=== PATIENT | male | born 1950 | race Caucasian/White ===

== ENCOUNTER 2021-08-20 12:28 | Outpatient (CLI) | payer MEDICARE, OTHER, SELFPAY ==
--- NOTE | 2021-08-20 06:00 | DI.RAD_ITS ---
Exam(s) XR PAIN CLINIC SACRIOILIAC 2V EXAM: XR PAIN CLINIC SACRIOILIAC 2V CLINICAL HISTORY: DX: SI joint dysfunction TECHNIQUE: 2D and realtime digital imaging was performed. CONTRAST MATERIAL: Refer to procedure report. COMPARISON: No exams were available for comparison FINDINGS: Fluoroscopy was provided for Dr. Bishop during the performance of a right SI joint injection. Please refer to the procedure report for complete details. Ka,r=16.5 mGy IMPRESSION:
[2021-08-20 12:42] VITALS: BP 160/86; PULSE 96; RESP 22; TEMP 37.1; O2SAT 96
--- NOTE | 2021-08-20 13:21 | PDOC.PAIN ---
Pain Clinic Procedure Note Procedure Note Procedure Note: INTRA-ARTICULAR SI JOINT INJECTION Vernon Hernandez has been referred to the [facility] for intra-articular SI joint injection. COMMENTS: He had this procedure in the past and had >1 year of relief. Pre-procedure pain VAS = 6/10. Dx: Sacroiliac joint dysfunction Patient was interviewed and the medical record reviewed. There were no medical, pharmacologic, radiographic or other structural contraindications to attempting fluoroscopically guided intra-articular SI joint injection. Risks and expected side effects as well as potential benefit of the procedure were reviewed and voiced concerns addressed. The printed consent form was signed and witnessed. Standard time-out procedure was performed. Patient was placed in the prone position on the fluoroscopy table and automated blood pressure cuff and pulse oximeter applied. The skin entry point for approaching the right SI joint was identified under the most advantageous fluoroscopic view and marked. Following thorough Chlorhexadine preparation of the skin and draping and 1% lidocaine infiltration of the skin entry point and subcutaneous tissues, a 22 gauge 5 spinal needle was placed under fluoroscopic guidance into the right SI joint was identified under the most advantageous fluoroscopic view and marked. Intra-articular placement was confirmed by a clear arthrogram resulting from the injection of 0.25ml Omnipaque 240, 1ml 1% lidocaine, and 40mg Depomedrol were injected intra-articularily with an initial reproduction of a significant component of the usual pain. Vital signs were stable throughout the procedure and were as recorded in the docflowsheet by the nursing staff. If given, dosages of intravenous drugs for anxiolysis and analgesia were documented in MAR. Follow up plans and appointments were discussed with the patient. Post procedure instruction was given as documented in nursing documentation and having met discharge criteria, and was discharged from the [facility]. COMMENTS: Post-procedure pain VAS = 0/10 Gab Bishop DO, MPH [facility] CC: Shea Bains
[2021-08-20] MEDS: Omnipaque 240 MG/ML 50 ML BTL IJ (13:30)
[2021-08-20] MEDS: methylPREDNISolone ACETATE 80 MG/ML VIAL IJ (13:30)
[2021-08-20 13:31] VITALS: BP 155/76; PULSE 93; RESP 22; O2SAT 97
== END 2021-08-20 12:29 | disposition home or self-care (01) ==
LOC: PC 12:30
PROVIDERS: PCP Family Medicine; Visit Provider Preventive Medicine Occupational Medicine
DX: M53.3 Sacrococcygeal disorders, not elsewhere classified (principal)
CPT/HCPCS: 27096; 72200; J1040; Q9967

== ENCOUNTER 2021-09-15 03:43 | Outpatient (CLI) | payer MEDICARE, OTHER, SELFPAY ==
[2021-09-15] MEDS: Inhaler, Assist Device 1 EACH MC (14:34)
[2021-09-15] MEDS: Albuterol HFA 18 GM 200 PUFF INH IH (14:34)
--- NOTE | 2021-09-16 09:08 | W.PFT ---
Date of service: 09/15/21 Time of Service: 13:06 Pulmonary Function Test Result Requesting Provider Erinn Indications: COPD Interpretation Spirometry: Although the FEV1/FVC is normal, airflow obstruction is suggested by the flow volume loop and the volume time curve. There is no significant bronchodilator response.The FVC is low. Lung Volumes: Lung volumes are normal. Diffusion Capacity: Diffusion is reduced Airway Pressure: Normal airways resistance Impression Likely mild airflow obstruction and a reduced diffusion. This could represent COPD with emphysema. Clinical Correlation therefore is recommended.
== END 2021-09-15 03:44 | disposition home or self-care (01) ==
LOC: RT 03:44
PROVIDERS: PCP Family Medicine; Visit Provider Student in an Organized Health Care Education/Training Program
DX: J44.9 Chronic obstructive pulmonary disease, unspecified (principal); R94.2 Abnormal results of pulmonary function studies; Z87.891 Personal history of nicotine dependence
CPT/HCPCS: 94060; 94726; 94729

== ENCOUNTER → 2023-02-25 11:16 | Outpatient (BNVA) | payer MEDICARE, OTHER, SELFPAY | PROVIDERS: PCP Family Medicine; Referring Provider Family Medicine; Visit Provider Student in an Organized Health Care Education/Training Program | DX: J44.9 Chronic obstructive pulmonary disease, unspecified (principal); J45.909 Unspecified asthma, uncomplicated; G47.33 Obstructive sleep apnea (adult) (pediatric); Z87.891 Personal history of nicotine dependence | CPT/HCPCS: 99214 ==

== ENCOUNTER → 2023-08-24 12:31 | Outpatient (BNVA) | payer MEDICARE, OTHER, SELFPAY | PROVIDERS: PCP Family Medicine; Referring Provider Family Medicine; Visit Provider Physician Assistant Surgical | DX: J44.9 Chronic obstructive pulmonary disease, unspecified (principal); G47.33 Obstructive sleep apnea (adult) (pediatric); Z87.891 Personal history of nicotine dependence | CPT/HCPCS: 99214 ==

== ENCOUNTER → 2024-02-21 12:12 | Outpatient (BNVA) | payer MEDICARE, OTHER, SELFPAY | PROVIDERS: PCP Family Medicine; Referring Provider Family Medicine; Visit Provider Physician Assistant Surgical | DX: G47.33 Obstructive sleep apnea (adult) (pediatric) (principal); J44.9 Chronic obstructive pulmonary disease, unspecified; Z87.891 Personal history of nicotine dependence | CPT/HCPCS: 99214 ==

== ENCOUNTER 2024-10-12 11:13 | Inpatient (IN) | payer MEDICARE, OTHER, SELFPAY ==
[2024-10-12] VITALS (52 sets, daily range): BP systolic 90–170; BP diastolic 52–145; PULSE 59–127; RESP 13–22; TEMP 36–36.2; O2SAT 76–98
--- NOTE | 2024-10-12 11:30 | DI.RAD_ITS ---
Exam(s) XR PORTABLE CHEST AP EXAM: XR PORTABLE CHEST AP CLINICAL HISTORY: hyperglycemia, r/o PNA TECHNIQUE: 2D digital imaging was performed. COMPARISON: None FINDINGS: Exam is limited by semi-upright positioning and portable technique as well as patient body habitus. The film is rotated. There are overlying monitoring leads. LUNGS: Grossly clear where visualized. No pleural abnormality seen. HEART: enlarged. AORTA: Grossly normal diameter. BONES: Severe degenerative changes of the shoulders. Soft tissues: Unremarkable. IMPRESSION: Limited exam. No acute findings. DATA REPOSITORY: RADIATION DOSE DELIVERED:
--- NOTE | 2024-10-12 11:44 | W.ED.GENAD ---
Discharge Plan Disposition Patient Disposition: Admit to [facility] Discharge Details Clinical Impression: DKA (diabetic ketoacidosis) Primary Care Provider: Shea Bains ED Provider: Latrice Crespo Home Meds and New Rx's Prescriptions: No Action Jardiance 25 mg tablet 25 mg PO DAILY lutein 6 mg capsule 6 mg PO DAILY Rx Instructions: give with meal/snack vit D3-vit K2-olive leaf ext 25 mcg-20 mcg- 250 mg capsule PO DAILY pyridoxine (vitamin B6) 100 mg tablet 100 mg PO DAILY mecobalamin (vitamin B12) 1,000 mcg tablet,chewable 1,000 mcg PO DAILY vitamin A-vit C-vit E-zinc-Cu Tablet PO metformin 500 mg tablet 500 mg PO BID furosemide [Lasix] 40 mg tablet 40 mg PO BID loratadine [Allergy Relief (loratadine)] 10 mg tablet 10 mg PO DAILY PRN atorvastatin [Lipitor] 20 mg tablet 20 mg PO DAILY polyethylene glycol 3350 [Miralax] 17 gram powder in packet 17 g PO DAILY metoprolol succinate [Toprol XL] 200 mg tablet extended release 24 hr 200 mg PO DAILY lorazepam 0.5 mg tablet 0.5 mg PO DAILY PRN (DME) miscellaneous medical supply Misc See Rx Instructions .ROUTE Rx Instructions: As directed (DME) back brace Misc See Rx Instructions .ROUTE Rx Instructions: As directed duloxetine 20 mg capsule,delayed release(DR/EC) 20 mg PO DAILY (DME) Poise Pads Pad See Rx Instructions .ROUTE Rx Instructions: As directed lutein 20 mg tablet 20 mg PO DAILY Rx Instructions: give with meal/snack Combivent Respimat 20-100 mcg/actuation mist 1 puff inhalation 4XD terazosin 5 MG capsule 5 mg PO DAILY triamcinolone acetonide 5 GM paste 5 g Dental BID pantoprazole [Protonix] 40 MG tablet,delayed release (DR/EC) 40 mg PO DAILY PRN metoprolol tartrate 25 MG tablet 25 mg PO DAILY Rx Instructions: one half tablet in AM, one whole tablet in the evening. potassium chloride [Klor-Con 10] 10 MEQ tablet extended release 10 meq PO DAILY levothyroxine 112 MCG tablet 112 mcg PO DAILY Combivent Respimat 4 GM mist 1 puff Inhalation QID Rx Instructions: 20-100 MCG/ACT Oxygen EACH 2 l NS PRN PRNQty: 3 Rx Instructions: Via nasal cannula 24 hrs daily. diclofenac sodium 100 GM gel 4 gm Topical QID PRN30 Days Qty: 100 Rx Instructions: apply 4 grams to right knee or right shoulder finasteride 5 mg tablet 5 mg PO DAILY clotrimazole-betamethasone 1-0.05 % cream 1 applic topical BID lisinopril 2.5 mg tablet 20 mg PO DAILY digoxin 125 mcg (0.125 mg) tablet 125 mcg PO DAILY diltiazem HCl 120 mg capsule,extended release 12 hr 120 mg PO DAILY mirabegron 25 mg tablet extended release 24 hr 50 mg PO DAILY Spiriva Respimat 2.5 mcg/actuation mist 2 puff inhalation DAILY Xarelto 20 mg tablet 20 mg PO DAILY Rx Instructions: must administer with evening meal primidone [Mysoline] 50 mg tablet 50 mg PO QHS gabapentin 300 mg Capsule 600 mg PO BID primidone 250 mg tablet 250 mg PO DAILY HPI General Date/Time Provider Initiated Documentation: 10/12/24 11:19. HPI Narrative: Derrek (preferred name) is a 74-year-old male with history of T2DM, COPD, combined systolic and diastolic heart function with EF 45% on echo 02/26/2023, HTN, WAQAR, hypothyroidism, Luciano's esophagus, BPH, lumbar spinal stenosis, and obesity who presents to the emergency department today for evaluation of generalized not feeling well/confusion and elevated blood sugars. reports that he started not acting quite like himself yesterday. Today she called the ambulance because he did not seem to be recognizing his surroundings. He has been taking his Jardiance and metformin as prescribed; usually checks blood sugars 3 times a week, but has not been able to do so this week due to camping. Denies fever/chills, congestion, sore throat, cough, abdominal pain, change in bowel or bladder function, blood in stool or black/tarry stools. Denies history of hospitalization for DKA or other diabetes related complications. Related Data Home Medications ?Medication ?Instructions ?Recorded ?Confirmed Protonix 40 mg tablet,delayed 40 mg PO DAILY PRN 10/29/16 10/12/24 release (pantoprazole) metoprolol tartrate 25 mg tablet 25 mg PO DAILY 10/29/16 10/12/24 terazosin 5 mg capsule 5 mg PO DAILY 10/29/16 10/12/24 triamcinolone acetonide 0.1 % 5 g dental BID 10/29/16 10/12/24 dental paste Oxygen 2 l NS PRN PRN ##3 06/13/17 10/12/24 ipratropium 20 mcg-albuterol 100 1 puff inhalation QID 06/13/17 10/12/24 mcg/actuation mist for inhalation (Combivent Respimat) levothyroxine 112 mcg tablet 112 mcg PO DAILY 06/13/17 10/12/24 potassium chloride 10 mEq 10 meq PO DAILY 06/13/17 10/12/24 tablet,extended release (Klor-Con) diclofenac sodium 3 % topical gel 4 gm topical QID PRN 30 days #100 06/16/17 02/21/24 grams clotrimazole-betamethasone 1 1 applic topical BID 05/12/21 10/12/24 %-0.05 % topical cream digoxin 125 mcg (0.125 mg) tablet 125 mcg PO DAILY 05/12/21 10/12/24 diltiazem HCl 120 mg 120 mg PO DAILY 05/12/21 10/12/24 capsule,extended release 12 hr finasteride 5 mg tablet 5 mg PO DAILY 05/12/21 10/12/24 lisinopril 2.5 mg tablet 20 mg PO DAILY 05/12/21 10/12/24 mirabegron 25 mg tablet,extended 50 mg PO DAILY 05/12/21 10/12/24 release 24 hr rivaroxaban 20 mg tablet (Xarelto) 20 mg PO DAILY 05/12/21 10/12/24 tiotropium bromide 2.5 2 puff inhalation DAILY 05/12/21 10/12/24 mcg/actuation mist for inhalation (Spiriva Respimat) gabapentin 300 mg capsule 600 mg PO BID 08/20/21 10/12/24 furosemide 40 mg tablet (Lasix) 40 mg PO BID 08/21/21 10/12/24 loratadine 10 mg tablet (Allergy 10 mg PO DAILY PRN 07/19/22 02/21/24 Relief (loratadine)) empagliflozin 25 mg tablet 25 mg PO DAILY 08/24/23 10/12/24 (Jardiance) Mysoline 50 mg tablet (primidone) 50 mg PO QHS 02/21/24 10/12/24 lutein 6 mg capsule 6 mg PO DAILY 02/21/24 10/12/24 mecobalamin (vitamin B12) 1,000 1,000 mcg PO DAILY 02/21/24 10/12/24 mcg chewable tablet metformin 500 mg tablet 500 mg PO BID 02/21/24 10/12/24 pyridoxine (vitamin B6) 100 mg 100 mg PO DAILY 02/21/24 10/12/24 tablet vitamin A-vit C-vit E-zinc-Cu tab PO 02/21/24 02/21/24 tablet vitamin D3 25 mcg-vitamin K2 20 cap PO DAILY 02/21/24 02/21/24 mcg-olive leaf extract 250 mg capsule atorvastatin 20 mg tablet (Lipitor) 20 mg PO DAILY 09/04/24 10/12/24 back brace 09/04/24 10/12/24 duloxetine 20 mg capsule,delayed 20 mg PO DAILY 09/04/24 10/12/24 release incontinence pad, liner, disp 09/04/24 10/12/24 (Poise Pads) ipratropium 20 mcg-albuterol 100 1 puff inhalation 4XD 09/04/24 10/12/24 mcg/actuation mist for inhalation (Combivent Respimat) lorazepam 0.5 mg tablet 0.5 mg PO DAILY PRN 09/04/24 10/12/24 lutein 20 mg tablet 20 mg PO DAILY 09/04/24 10/12/24 metoprolol succinate 200 mg 200 mg PO DAILY 09/04/24 10/12/24 tablet,extended release 24 hr (Toprol XL) miscellaneous medical supply 09/04/24 10/12/24 polyethylene glycol 3350 17 gram 17 g PO DAILY 09/04/24 10/12/24 oral powder packet (Miralax) primidone 250 mg tablet 250 mg PO DAILY 10/12/24 10/12/24 Allergies Allergy/AdvReac Type Severity Reaction Status Date / Time morphine Allergy Unknown Other (See Unverified 09/04/24 14:09 Comment) seasonal Allergy Unknown Other (See Uncoded 02/21/24 12:38 Comment) General Stated Complaint: Diabetes ABHILASH: 3 Exam Narrative Exam Narrative: General Appearance: Patient appears confused, often does not respond appropriately to questions. Vital signs: Within normal limits. No tachycardia, fever, or hypoxia HEENT: Dry mucous membranes, tongue is dry. Brown film noted on teeth. Respiratory: Diminished lung sounds throughout, easy work of breathing Gastrointestinal: Obese, soft, nondistended, nontender abdomen. Skin: Warm and dry. Flat erythematous rash with noted in skin roberto of pannus, no crusting, vesicles, drainage/exudate. Neurologic: Patient is able to follow commands, moving all extremities equally. Normal facial strength, clear speech. Psychiatric: Normal. Course Vital Signs Vital signs: Vital Signs Temperature 36.2 C L 10/12/24 11:20 Pulse 64 10/12/24 11:20 Respiratory Rate 20 10/12/24 11:20 Blood Pressure 135/81 10/12/24 11:20 Pulse Oximetry 98 10/12/24 11:20 Temperature 36.2 C L 10/12/24 11:28 Temperature Source Tympanic 10/12/24 11:28 Pulse 64 10/12/24 11:28 Respiratory Rate 20 10/12/24 11:28 Blood Pressure 135/81 10/12/24 11:28 Pulse Oximetry 98 10/12/24 11:28 Oxygen Delivery Method Room Air 10/12/24 11:28 Oxygen Flow Rate 0 10/12/24 11:28 Pain Level 0 10/12/24 11:28 Medical Decision Making Initial Assessment: 74-year-old male with hypoglycemia, elevated blood sugars, and non-compliance with insulin injections. Last A1c was 8 on 09/06/2024. Currently on metformin and Jardiance. Presented via EMS, blood sugar read only HI DDx includes was not limited to: Cardiac arrhythmia, DKA/HHS, dehydration, viral illness such as COVID-19 or flu, occult infection such as pneumonia or UTI, electrolyte imbalance ED Course: - EKG performed - Blood work drawn - Fluid rehydration provided I independently interpreted the following tests: EKG shows A-fib with rate 74, LBBB unchanged from previous noted at [facility] [place], no changes consistent with acute ischemia. CBC notable for leukocytosis, white cell count 17.7. CMP notable for blood glucose 909, potassium 4.6, anion gap 16.8. pH slightly acidotic at 7.27. Lactate is elevated at 2.4. +urine ketones While in the ED Derrek was given 1 L lactated ringer (for a total of 1.5 L), followed by insulin drip per [facility] protocol with LR at 150 an hour. Presented case to Dr Bowles, hospitalist physician. Pt to be admitted for management of hyperglycemia. Clinical Impression: - DKA Patient consented to the use of [facility] Imaging Data Radiologic Study: Radiologist's impression: Exam(s) XR PORTABLE CHEST AP EXAM: XR PORTABLE CHEST AP CLINICAL HISTORY: hyperglycemia, r/o PNA TECHNIQUE: 2D digital imaging was performed. COMPARISON: None FINDINGS: Exam is limited by semi-upright positioning and portable technique as well as patient body habitus. The film is rotated. There are overlying monitoring leads. LUNGS: Grossly clear where visualized. No pleural abnormality seen. HEART: enlarged. AORTA: Grossly normal diameter. BONES: Severe degenerative changes of the shoulders. Soft tissues: Unremarkable. IMPRESSION: Limited exam. No acute findings. PFSH All Active Problems (Updated 10/12/24 @ 15:59 by Latrice Alfaro) DKA (diabetic ketoacidosis) (Acute) Personal history of nicotine dependence (Acute) WAQAR (obstructive sleep apnea) (Chronic) Sacroiliac joint dysfunction of right side (Acute) Barretts esophagus (Acute) Type 2 diabetes mellitus with hyperglycemia (Acute) Combined systolic and diastolic heart failure (Acute) EF 30% on echo 04/2021, significant change from EF 55% IN 2019 + MR on echo 04/2021 Tremor of left hand (Acute) Macular degeneration of both eyes (Acute) COPD (chronic obstructive pulmonary disease) (Chronic) Restrictive lung disease (Acute) 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) Medical History (Updated 10/12/24 @ 15:59 by Latrice Alfaro) Back pain, lumbosacral Bilateral age-related macular degeneration Brittle nails Right shoulder pain Left shoulder pain Foot pain Osteoarthritis Constipation Spinal stenosis, lumbar region with neurogenic claudication Mitral regurgitation 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 Right knee pain Renal insufficiency Hyperkalemia Nuclear age-related cataract, both eyes Localized swelling of right lower leg Overactive bladder Type 2 diabetes mellitus with diabetic chronic kidney disease Obesity, morbid, BMI 40.0-49.9 PHT (portal hypertension) AAA (abdominal aortic aneurysm) COPD, severe Pyarthrosis PSA (psoriatic arthritis) ASCVD (arteriosclerotic cardiovascular disease) Health care maintenance Skin complaints Alopecia Arthritis of both knees Hypercholesteremia Arthritis of right shoulder region Breast lump or mass HTN (hypertension) Pleural effusion, bilateral GERD (gastroesophageal reflux disease) Peripheral edema Hypoxia Melanocytic nevus of trunk Hypothyroidism Left Hyperlipidemia Hyperglycemia Essential and other specified forms of tremor Atrial fibrillation Anemia CAD (coronary artery disease) Heart failure Morbid obesity SOB (shortness of breath) Fatigue Sleep apnea Low back pain Primary osteoarthritis of right shoulder BPH (benign prostatic hyperplasia) Surgical History (Updated 09/04/24 @ 13:54 by Yaneth Alanis) S/P colonoscopy History of esophagogastroduodenoscopy (EGD) 04/2021, biopsies pending Arthroplasty of knee 03/2016 Left Family History Mother Emphysema of lung Father CHF (congestive heart failure) Sister Waldenstrom's disease Arthritis Brother Hypertension Social History Smoking/Tobacco Use Status: Former Tobacco Use Quit Date: 02/07/94 Smoking risk assessment performed?: Yes Alcohol Intake: never Drug use: Never Substance use type: does not use Household members: spouse Housing: house 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
[2024-10-12 11:45] LABS: Abs Immature Grans 0.10 10^3/uL (0.0-0.06); HCT 42.2 % (40.0-50.0); HGB 13.9 g/dL (13.5-17.5); Immature Grans % 0.6 %; MCH 28.0 pg (27.0-33.0); MCHC 32.9 % (32.0-36.0); MCV 85 fL (80-95); MPV 13.6 fL (8.0-11.0); Platelet Count 224 10^3/uL (130-400); RBC 4.96 10^6/uL (4.36-5.78); RDW 14.9 % (11.8-14.1); RDW-SD 45.5 fL; WBC 17.70 10^3/uL (4.4-10.8)
--- NOTE | 2024-10-12 11:45 | RT.EKG_ITS ---
APPROVED REPORT Exam: Resting ECG Reason for Exam: ams Patient Location: E HR:74 bpm ECG Measurements Heart Rate 74 AXIS ID [id number] P [id number] QRSd 162 QRS 153 QT 437 T -38 QTc 486 Conclusion Atrial fibrillation...V-rate 56- 66, irreg A-activity Left bundle branch block...QRSd>120, broad/notched R
[2024-10-12 11:47] LABS: BE (Venous) -5 mmol/L (-2-3); HCO3 (Venous) 22 mmol/L (23-28); O2 Sat (Venous) 77 %; TCO2 (Venous) 20 mmol/L (24-29); pCO2 (Venous) 47 mmHg (41-51); pO2 (Venous) 46 mmHg
[2024-10-12] MEDS: Lactated Ringers 1,000 ML 1000 ML IV (12:21)
[2024-10-12 12:32] LABS: ALT 33 U/L (16-63); AST 20 U/L (15-37); Albumin 3.5 g/dL (3.4-5.0); Alkaline Phosphatase 266 U/L (46-116); Anion Gap 16.8 mmol/L (3-11); BUN 32 mg/dL (7-18); Bilirubin, Total 0.8 mg/dL (0.2-1.0); CO2 22.2 mmol/L (21.0-32.0); Calcium 9.3 mg/dL (8.5-10.1); Chloride 88 mmol/L (98-107); Estimated GFR 30.28 (mL/min/1.73m2); Potassium 4.6 mmol/L (3.5-5.1); Sodium 127 mmol/L (136-145); Total Protein 7.2 g/dL (6.4-8.2)
[2024-10-12 12:49] LABS: Glucose 909 mg/dL (74-106)
[2024-10-12 12:50] LABS: Glucose >=1000 mg/dL (Negative)
[2024-10-12 13:04] LABS: C & S Indicated? No; RBC 0-2 HPF (0-2); WBC Negative HPF (0-5)
[2024-10-12] MEDS: INSULIN REGULAR IN 0.9 % NACL 100 UNIT/100 ML BAG IVINF (14:07)
[2024-10-12 14:27] LABS: Anion Gap 15.2 mmol/L (3-11); BUN 32 mg/dL (7-18); CO2 22.8 mmol/L (21.0-32.0); Calcium 9.5 mg/dL (8.5-10.1); Chloride 90 mmol/L (98-107); Estimated GFR 30.28 (mL/min/1.73m2); Potassium 5.1 mmol/L (3.5-5.1); Sodium 128 mmol/L (136-145)
--- NOTE | 2024-10-12 14:28 | W.PM.HP.N ---
Date of service: 10/12/24 Time of Service: 14:28 Assessment and Plan Assessment and plan (1) DKA (diabetic ketoacidosis): Status: Acute Assessment and plan: - Patient presented not feeling well, generalized weakness and some confusion after having not checked his blood sugar for a week while on vacation - Blood sugar found to be 909 in the emergency department, with supporting evidence for DKA being acidosis on VBG with a pH of 7.2, ketones in the urine, and an anion gap of 17 Have the patient was started on insulin drip in the emergency department - Will continue DKA protocol while in the ICU, once patient is awake, able to tolerate p.o. and his anion gap is closed we will transition to long-acting insulin and discontinue insulin drip 1 to 2 hours after - Hold home metformin while on insulin drip (2) Combined systolic and diastolic heart failure: Status: Acute Assessment and plan: - Without acute exacerbation -Continue home statin, 40 mg Lasix, 20 mg lisinopril (3) COPD (chronic obstructive pulmonary disease): Status: Chronic Assessment and plan: - Without acute exacerbation, continue home inhaler regimen (4) Renal insufficiency: Assessment and plan: - Unsure what baseline is, creatinine currently 2.2 - Follow-up a.m. CMP (5) HTN (hypertension): Assessment and plan: - Continue home antihypertensives (6) Barretts esophagus: Status: Acute Assessment and plan: - Continue home PPI (7) Hypothyroidism: Assessment and plan: - Continue home Synthroid (8) Atrial fibrillation: Assessment and plan: - Continue home Xarelto, digoxin, diltiazem History of Present Illness History of Present Illness Chief Complaint: weakness, confusion, elevated blood sugar Narrative: 74-year-old male with a past medical history of IDDM, COPD, systolic and diastolic heart failure last EF of 45% in February 2023, hypertension, WAQAR, hypothyroidism, Luciano's esophagus, BPH, lumbar spine stenosis, and morbid obesity presents to the emergency department with not feeling well, confusion and elevated blood sugar. Patient and his that he has started not acting himself beginning yesterday, but the patient had been taking his Jardiance and metformin as prescribed and usually checks his blood sugar 3 times a week but had not been doing so while he was on vacation camping. He denies any headache, lightheadedness, dizziness, fever, cough, abdominal pain, nausea vomiting or diarrhea. In the emergency department patient was noted as having normal vital signs and normal physical exam. However, CBC showed white blood cell count of 17.7, patient had an initial blood glucose of 909 with pseudohyponatremia sodium 127, and anion gap of 16.8, BUN of 32 and a creatinine of 2.2 (unknown baseline). Additionally, VBG showed a pH of 7.27 with bicarb of 22, carbon dioxide of 20, and a lactic acid of 2.4. Patient was given IV fluids and started on insulin drip in the emergency department at which time emergency room PA paged hospitalist for admission for patient with DKA. Review of Systems All systems reviewed & are unremarkable except as noted in HPI and below PFSH All Active Problems (Updated 10/12/24 @ 15:59 by Latrice Alfaro) DKA (diabetic ketoacidosis) (Acute) Personal history of nicotine dependence (Acute) WAQAR (obstructive sleep apnea) (Chronic) Sacroiliac joint dysfunction of right side (Acute) Barretts esophagus (Acute) Type 2 diabetes mellitus with hyperglycemia (Acute) Combined systolic and diastolic heart failure (Acute) EF 30% on echo 04/2021, significant change from EF 55% IN 2019 + MR on echo 04/2021 Tremor of left hand (Acute) Macular degeneration of both eyes (Acute) COPD (chronic obstructive pulmonary disease) (Chronic) Restrictive lung disease (Acute) 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) Medical History (Updated 10/12/24 @ 15:59 by Latrice Alfaro) Back pain, lumbosacral Bilateral age-related macular degeneration Brittle nails Right shoulder pain Left shoulder pain Foot pain Osteoarthritis Constipation Spinal stenosis, lumbar region with neurogenic claudication Mitral regurgitation Tobacco use snf current use of anticoagulant therapy Right knee pain Renal insufficiency Hyperkalemia Nuclear age-related cataract, both eyes Localized swelling of right lower leg Overactive bladder Type 2 diabetes mellitus with diabetic chronic kidney disease Obesity, morbid, BMI 40.0-49.9 PHT (portal hypertension) AAA (abdominal aortic aneurysm) COPD, severe Pyarthrosis PSA (psoriatic arthritis) ASCVD (arteriosclerotic cardiovascular disease) Health care maintenance Skin complaints Alopecia Arthritis of both knees Hypercholesteremia Arthritis of right shoulder region Breast lump or mass HTN (hypertension) Pleural effusion, bilateral GERD (gastroesophageal reflux disease) Peripheral edema Hypoxia Melanocytic nevus of trunk Hypothyroidism Left Hyperlipidemia Hyperglycemia Essential and other specified forms of tremor Atrial fibrillation Anemia CAD (coronary artery disease) Heart failure Morbid obesity SOB (shortness of breath) Fatigue Sleep apnea Low back pain Primary osteoarthritis of right shoulder BPH (benign prostatic hyperplasia) Surgical History (Updated 09/04/24 @ 13:54 by Yaneth Alanis) S/P colonoscopy History of esophagogastroduodenoscopy (EGD) 04/2021, biopsies pending Arthroplasty of knee 03/2016 Left Family History Mother Emphysema of lung Father CHF (congestive heart failure) Sister Waldenstrom's disease Arthritis Brother Hypertension Social History Smoking/Tobacco Use Status: Former Tobacco Use Quit Date: 02/07/94 Smoking risk assessment performed?: Yes Alcohol Intake: never Drug use: Never Substance use type: does not use Household members: spouse Housing: house 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 [employer] Do you feel safe at home: Yes Do you feel safe in your relationship?: Yes Meds Allergies and Home Medications Allergies Allergy/AdvReac Type Severity Reaction Status Date / Time morphine Allergy Unknown Other (See Unverified 09/04/24 14:09 Comment) seasonal Allergy Unknown Other (See Uncoded 02/21/24 12:38 Comment) Home Medications ?Medication ?Instructions ?Recorded ?Confirmed ?Type Protonix 40 mg tablet,delayed 40 mg PO DAILY PRN 10/29/16 10/12/24 History release (pantoprazole) metoprolol tartrate 25 mg tablet 25 mg PO DAILY 10/29/16 10/12/24 History terazosin 5 mg capsule 5 mg PO DAILY 10/29/16 10/12/24 History triamcinolone acetonide 0.1 % 5 g dental BID 10/29/16 10/12/24 History dental paste Oxygen 2 l NS PRN PRN ##3 06/13/17 10/12/24 History ipratropium 20 mcg-albuterol 100 1 puff inhalation QID 06/13/17 10/12/24 History mcg/actuation mist for inhalation (Combivent Respimat) levothyroxine 112 mcg tablet 112 mcg PO DAILY 06/13/17 10/12/24 History potassium chloride 10 mEq 10 meq PO DAILY 06/13/17 10/12/24 History tablet,extended release (Klor-Con) diclofenac sodium 3 % topical gel 4 gm topical QID PRN 30 days #100 06/16/17 02/21/24 History grams clotrimazole-betamethasone 1 1 applic topical BID 05/12/21 10/12/24 History %-0.05 % topical cream digoxin 125 mcg (0.125 mg) tablet 125 mcg PO DAILY 05/12/21 10/12/24 History diltiazem HCl 120 mg 120 mg PO DAILY 05/12/21 10/12/24 History capsule,extended release 12 hr finasteride 5 mg tablet 5 mg PO DAILY 05/12/21 10/12/24 History lisinopril 2.5 mg tablet 20 mg PO DAILY 05/12/21 10/12/24 History mirabegron 25 mg tablet,extended 50 mg PO DAILY 05/12/21 10/12/24 History release 24 hr rivaroxaban 20 mg tablet (Xarelto) 20 mg PO DAILY 05/12/21 10/12/24 History tiotropium bromide 2.5 2 puff inhalation DAILY 05/12/21 10/12/24 History mcg/actuation mist for inhalation (Spiriva Respimat) gabapentin 300 mg capsule 600 mg PO BID 08/20/21 10/12/24 History furosemide 40 mg tablet (Lasix) 40 mg PO BID 08/21/21 10/12/24 History loratadine 10 mg tablet (Allergy 10 mg PO DAILY PRN 07/19/22 02/21/24 History Relief (loratadine)) empagliflozin 25 mg tablet 25 mg PO DAILY 08/24/23 10/12/24 History (Jardiance) Mysoline 50 mg tablet (primidone) 50 mg PO QHS 02/21/24 10/12/24 History lutein 6 mg capsule 6 mg PO DAILY 02/21/24 10/12/24 History mecobalamin (vitamin B12) 1,000 1,000 mcg PO DAILY 02/21/24 10/12/24 History mcg chewable tablet metformin 500 mg tablet 500 mg PO BID 02/21/24 10/12/24 History pyridoxine (vitamin B6) 100 mg 100 mg PO DAILY 02/21/24 10/12/24 History tablet vitamin A-vit C-vit E-zinc-Cu tab PO 02/21/24 02/21/24 History tablet vitamin D3 25 mcg-vitamin K2 20 cap PO DAILY 02/21/24 02/21/24 History mcg-olive leaf extract 250 mg capsule atorvastatin 20 mg tablet (Lipitor) 20 mg PO DAILY 09/04/24 10/12/24 History back brace 09/04/24 10/12/24 History duloxetine 20 mg capsule,delayed 20 mg PO DAILY 09/04/24 10/12/24 History release incontinence pad, liner, disp 09/04/24 10/12/24 History (Poise Pads) ipratropium 20 mcg-albuterol 100 1 puff inhalation 4XD 09/04/24 10/12/24 History mcg/actuation mist for inhalation (Combivent Respimat) lorazepam 0.5 mg tablet 0.5 mg PO DAILY PRN 09/04/24 10/12/24 History lutein 20 mg tablet 20 mg PO DAILY 09/04/24 10/12/24 History metoprolol succinate 200 mg 200 mg PO DAILY 09/04/24 10/12/24 History tablet,extended release 24 hr (Toprol XL) miscellaneous medical supply 09/04/24 10/12/24 History polyethylene glycol 3350 17 gram 17 g PO DAILY 09/04/24 10/12/24 History oral powder packet (Miralax) primidone 250 mg tablet 250 mg PO DAILY 10/12/24 10/12/24 History Exam Narrative Exam Narrative: Confused, morbidly obese gentleman laying in bed in no acute distress, awake, alert, oriented to person and place only, heart regular rate rhythm, lungs bilaterally, abdomen soft, nontender, nondistended with significant rash noted over perennial area and lower abdomen Results Labs 10/12/24 11:35 10/12/24 13:59 Labs: Laboratory Results - last 24 hr 10/12/24 10/12/24 10/12/24 11:35 12:06 12:40 WBC 17.70 H RBC 4.96 Hgb 13.9 Hct 42.2 MCV 85 MCH 28.0 MCHC 32.9 RDW 14.9 H Plt Count 224 MPV 13.6 H Immature Gran % 0.6 Neutrophils % 86.7 Lymphocytes % 4.8 Monocytes % 7.5 Eosinophils % 0.1 Basophils % 0.3 Nucleated RBC % 0.0 Absolute Neutrophils 15.35 H Absolute Lymphocytes 0.85 L Absolute Monocytes 1.33 H Absolute Eosinophils 0.02 Absolute Basophils 0.05 VBG pH 7.27 L VBG pCO2 47 VBG pO2 46 VBG HCO3 22 L VBG Total CO2 20 L VBG O2 Saturation 77 VBG Base Excess -5 L VBG Lactate Sodium Cancelled 127 L Potassium Cancelled 4.6 Chloride Cancelled 88 L Carbon Dioxide Cancelled 22.2 Anion Gap Cancelled 16.8 H BUN Cancelled 32 H Creatinine Cancelled 2.2 H Est GFR (CKD-EPI 2020) Cancelled 30.28 Glucose Cancelled 909 H* Calcium Cancelled 9.3 Total Bilirubin Cancelled 0.8 AST Cancelled 20 ALT Cancelled 33 Alkaline Phosphatase Cancelled 266 H Total Protein Cancelled 7.2 Albumin Cancelled 3.5 Urine Color Yellow Urine Clarity Clear Urine pH 5.5 Ur Specific [place] <= 1.005 Urine Protein Negative Urine Ketones 15 H Urine Blood Trace-intact H Urine Nitrite Negative Urine Bilirubin Negative Urine Urobilinogen 0.2 Ur Leukocyte Esterase Negative Urine RBC 0-2 Urine WBC Negative Ur Epithelial Cells Rare Urine Crystals Negative Urine Bacteria Negative Urine Casts Negative Urine Mucus Negative Ur Culture Indicated? No Urine Glucose >=1000 H 10/12/24 13:59 WBC RBC Hgb Hct MCV MCH MCHC RDW Plt Count MPV Immature Gran % Neutrophils % Lymphocytes % Monocytes % Eosinophils % Basophils % Nucleated RBC % Absolute Neutrophils Absolute Lymphocytes Absolute Monocytes Absolute Eosinophils Absolute Basophils VBG pH VBG pCO2 VBG pO2 VBG HCO3 VBG Total CO2 VBG O2 Saturation VBG Base Excess VBG Lactate 2.4 H* Sodium Potassium Chloride Carbon Dioxide Anion Gap BUN Creatinine Est GFR (CKD-EPI 2020) Glucose Calcium Total Bilirubin AST ALT Alkaline Phosphatase Total Protein Albumin Urine Color Urine Clarity Urine pH Ur Specific [place] Urine Protein Urine Ketones Urine Blood Urine Nitrite Urine Bilirubin Urine Urobilinogen Ur Leukocyte Esterase Urine RBC Urine WBC Ur Epithelial Cells Urine Crystals Urine Bacteria Urine Casts Urine Mucus Ur Culture Indicated? Urine Glucose Last Vital Signs Temp 97.1 F L 10/12/24 11:28 Pulse 99 H 10/12/24 14:17 Resp 13 10/12/24 14:20 BP 139/83 10/12/24 14:17 Pulse Ox 93 10/12/24 14:17 Time Spent Time spent with Patient: >75 minutes Time was spent: preparing to see the patient(eg.review tests), obtaining and/or reviewing separately otained hiistory, ordering medications,tests, procedures, referring, communicating with other health ostomy care nurse, indepentently interpreting results, counseling the patient and care coordination
[2024-10-12 14:31] LABS: Glucose 873 mg/dL (74-106)
[2024-10-12 14:36] LABS: Magnesium 2.4 mg/dL (1.8-2.4)
--- NOTE | 2024-10-12 16:11 | W.PC.ACHO ---
Registration Status: REG ER Primary Language: Preferred Language: Maori ED Information & Data Chief Complaint Diabetes 10/12/24 11:46 Triage Note Pt KIMMY reporting staying at [place]12/24 11:20 the [place] in [place]. Reports he has been out of test strips for BGL, so has not been checking blood sugars. Confused, lethargic, and complaining of not feeling well. Pt states he knows his blood sugars have been bad. BGL reads HI on glucometer. 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 Right knee pain Renal insufficiency Hyperkalemia Nuclear age-related cataract, both eyes Localized swelling of right lower leg Overactive bladder Type 2 diabetes mellitus with diabetic chronic kidney disease Obesity, morbid, BMI 40.0-49.9 PHT (portal hypertension) AAA (abdominal aortic aneurysm) COPD, severe Pyarthrosis PSA (psoriatic arthritis) ASCVD (arteriosclerotic cardiovascular disease) Health care maintenance Skin complaints Alopecia Arthritis of both knees Hypercholesteremia Arthritis of right shoulder region Breast lump or mass HTN (hypertension) Pleural effusion, bilateral GERD (gastroesophageal reflux disease) Peripheral edema Hypoxia Melanocytic nevus of trunk Hypothyroidism Hyperlipidemia Hyperglycemia Essential and other specified forms of tremor Atrial fibrillation Anemia CAD (coronary artery disease) Heart failure Morbid obesity SOB (shortness of breath) Fatigue Sleep apnea Low back pain Primary osteoarthritis of right shoulder BPH (benign prostatic hyperplasia) (Last Updated 09/04/24 @ 13:54 by Yaneth Alanis) S/P colonoscopy History of esophagogastroduodenoscopy (EGD) Arthroplasty of knee Most Recent Vital Signs Temperature 36.2 C L 10/12/24 11:28 Temperature Source Tympanic 10/12/24 11:28 Pulse 82 10/12/24 14:46 Pulse 80 10/12/24 15:00 Respiratory Rate 20 10/12/24 15:00 Blood Pressure 138/86 10/12/24 14:46 Blood Pressure Mean 106 10/12/24 14:46 Pulse Oximetry 93 10/12/24 14:17 Oxygen Delivery Method Room Air 10/12/24 11:28 Oxygen Flow Rate 0 10/12/24 11:28 Pain Level 0 10/12/24 11:28 Allergies morphine Allergy (Unknown, Unverified 09/04/24 14:09) Other (See Comment) Can only have small amounts seasonal Allergy (Unknown, Uncoded 02/21/24 12:38) Other (See Comment) Active Medications Generic Name Dose Route Start Last Admin Trade Name Echo PRN Reason Stop Dose Admin Insulin Human Regular 100 unit in 100 mls @ 2 mls/hr 10/12/24 13:00 10/12/24 14:07 Myxredlin IVINF 2 unit/hr INFUSION RADHA 2 mls/hr Protocol Administration 2 UNIT/HR IV IV Catheter Type [Left Wrist] Peripheral IV IV Catheter Type [Right Saline Lock Antecubital] IV Catheter Gauge [Left Wrist] 20 IV Catheter Gauge [Right 20 Antecubital] Diagnostics 10/12/24 10/12/24 10/12/24 Range/Units 23:00 21:00 19:00 WBC (4.4-10.8) 10^3/uL RBC (4.36-5.78) 10^6/uL Hgb (13.5-17.5) g/dL Hct (40.0-50.0) % MCV (80-95) fL MCH (27.0-33.0) pg MCHC (32.0-36.0) % RDW (11.8-14.1) % Plt Count (130-400) 10^3/uL MPV (8.0-11.0) fL Immature Gran % % Neutrophils % % Lymphocytes % % Monocytes % % Eosinophils % % Basophils % % Nucleated RBC % (0.0-0.3) % Absolute Neutrophils (1.2-6.7) 10^3/uL Absolute Lymphocytes (1.2-3.4) 10^3/uL Absolute Monocytes (0.1-0.8) 10^3/uL Absolute Eosinophils (0.0-0.7) 10^3/uL Absolute Basophils (0.0-0.2) 10^3/uL VBG pH (7.31-7.41) VBG pCO2 (41-51) mmHg VBG pO2 mmHg VBG HCO3 (23-28) mmol/L VBG Total CO2 (24-29) mmol/L VBG O2 Saturation % VBG Base Excess (-2-3) mmol/L VBG Lactate (<or=2.0) mmol/L Sodium Pending Pending Pending Potassium Pending Pending Pending Chloride Pending Pending Pending Carbon Dioxide Pending Pending Pending Anion Gap Pending Pending Pending BUN Pending Pending Pending Creatinine Pending Pending Pending Est GFR (CKD-EPI 2020) Pending Pending Pending Glucose Pending Pending Pending Calcium Pending Pending Pending Phosphorus (2.6-4.7) mg/dL Magnesium (1.8-2.4) mg/dL Total Bilirubin AST ALT Alkaline Phosphatase Total Protein Albumin Urine Color (Yellow) Urine Clarity (Clear) Urine pH (5-8) Ur Specific [place] (1.005-1.025) Urine Protein (Neg-Trace) mg/dL Urine Ketones (Negative) mg/dL Urine Blood (Negative) Urine Nitrite (Negative) Urine Bilirubin (Negative) Urine Urobilinogen (Up to 0.2) mg/dL Ur Leukocyte Esterase (Negative) Urine RBC (0-2) HPF Urine WBC (0-5) HPF Ur Epithelial Cells (Negative) HPF Urine Crystals (Negative) HPF Urine Bacteria (Negative) HPF Urine Casts (Negative) LPF Urine Mucus (Negative) Ur Culture Indicated? Urine Glucose (Negative) mg/dL 10/12/24 10/12/24 10/12/24 Range/Units 17:00 15:00 13:59 WBC (4.4-10.8) 10^3/uL RBC (4.36-5.78) 10^6/uL Hgb (13.5-17.5) g/dL Hct (40.0-50.0) % MCV (80-95) fL MCH (27.0-33.0) pg MCHC (32.0-36.0) % RDW (11.8-14.1) % Plt Count (130-400) 10^3/uL MPV (8.0-11.0) fL Immature Gran % % Neutrophils % % Lymphocytes % % Monocytes % % Eosinophils % % Basophils % % Nucleated RBC % (0.0-0.3) % Absolute Neutrophils (1.2-6.7) 10^3/uL Absolute Lymphocytes (1.2-3.4) 10^3/uL Absolute Monocytes (0.1-0.8) 10^3/uL Absolute Eosinophils (0.0-0.7) 10^3/uL Absolute Basophils (0.0-0.2) 10^3/uL VBG pH (7.31-7.41) VBG pCO2 (41-51) mmHg VBG pO2 mmHg VBG HCO3 (23-28) mmol/L VBG Total CO2 (24-29) mmol/L VBG O2 Saturation % VBG Base Excess (-2-3) mmol/L VBG Lactate 2.4 H* (<or=2.0) mmol/L Sodium Pending Pending 128 L Potassium Pending Pending 5.1 Chloride Pending Pending 90 L Carbon Dioxide Pending Pending 22.8 Anion Gap Pending Pending 15.2 H BUN Pending Pending 32 H Creatinine Pending Pending 2.2 H Est GFR (CKD-EPI 2020) Pending Pending 30.28 Glucose Pending Pending 873 H* Calcium Pending Pending 9.5 Phosphorus 5.2 H (2.6-4.7) mg/dL Magnesium 2.4 (1.8-2.4) mg/dL Total Bilirubin AST ALT Alkaline Phosphatase Total Protein Albumin Urine Color (Yellow) Urine Clarity (Clear) Urine pH (5-8) Ur Specific [place] (1.005-1.025) Urine Protein (Neg-Trace) mg/dL Urine Ketones (Negative) mg/dL Urine Blood (Negative) Urine Nitrite (Negative) Urine Bilirubin (Negative) Urine Urobilinogen (Up to 0.2) mg/dL Ur Leukocyte Esterase (Negative) Urine RBC (0-2) HPF Urine WBC (0-5) HPF Ur Epithelial Cells (Negative) HPF Urine Crystals (Negative) HPF Urine Bacteria (Negative) HPF Urine Casts (Negative) LPF Urine Mucus (Negative) Ur Culture Indicated? Urine Glucose (Negative) mg/dL 10/12/24 10/12/24 10/12/24 Range/Units 12:40 12:06 11:35 WBC 17.70 H (4.4-10.8) 10^3/uL RBC 4.96 (4.36-5.78) 10^6/uL Hgb 13.9 (13.5-17.5) g/dL Hct 42.2 (40.0-50.0) % MCV 85 (80-95) fL MCH 28.0 (27.0-33.0) pg MCHC 32.9 (32.0-36.0) % RDW 14.9 H (11.8-14.1) % Plt Count 224 (130-400) 10^3/uL MPV 13.6 H (8.0-11.0) fL Immature Gran % 0.6 % Neutrophils % 86.7 % Lymphocytes % 4.8 % Monocytes % 7.5 % Eosinophils % 0.1 % Basophils % 0.3 % Nucleated RBC % 0.0 (0.0-0.3) % Absolute Neutrophils 15.35 H (1.2-6.7) 10^3/uL Absolute Lymphocytes 0.85 L (1.2-3.4) 10^3/uL Absolute Monocytes 1.33 H (0.1-0.8) 10^3/uL Absolute Eosinophils 0.02 (0.0-0.7) 10^3/uL Absolute Basophils 0.05 (0.0-0.2) 10^3/uL VBG pH 7.27 L (7.31-7.41) VBG pCO2 47 (41-51) mmHg VBG pO2 46 mmHg VBG HCO3 22 L (23-28) mmol/L VBG Total CO2 20 L (24-29) mmol/L VBG O2 Saturation 77 % VBG Base Excess -5 L (-2-3) mmol/L VBG Lactate (<or=2.0) mmol/L Sodium 127 L Cancelled Potassium 4.6 Cancelled Chloride 88 L Cancelled Carbon Dioxide 22.2 Cancelled Anion Gap 16.8 H Cancelled BUN 32 H Cancelled Creatinine 2.2 H Cancelled Est GFR (CKD-EPI 2020) 30.28 Cancelled Glucose 909 H* Cancelled Calcium 9.3 Cancelled Phosphorus (2.6-4.7) mg/dL Magnesium (1.8-2.4) mg/dL Total Bilirubin 0.8 Cancelled AST 20 Cancelled ALT 33 Cancelled Alkaline Phosphatase 266 H Cancelled Total Protein 7.2 Cancelled Albumin 3.5 Cancelled Urine Color Yellow (Yellow) Urine Clarity Clear (Clear) Urine pH 5.5 (5-8) Ur Specific [place] <= 1.005 (1.005-1.025) Urine Protein Negative (Neg-Trace) mg/dL Urine Ketones 15 H (Negative) mg/dL Urine Blood Trace-intact H (Negative) Urine Nitrite Negative (Negative) Urine Bilirubin Negative (Negative) Urine Urobilinogen 0.2 (Up to 0.2) mg/dL Ur Leukocyte Esterase Negative (Negative) Urine RBC 0-2 (0-2) HPF Urine WBC Negative (0-5) HPF Ur Epithelial Cells Rare (Negative) HPF Urine Crystals Negative (Negative) HPF Urine Bacteria Negative (Negative) HPF Urine Casts Negative (Negative) LPF Urine Mucus Negative (Negative) Ur Culture Indicated? No Urine Glucose >=1000 H (Negative) mg/dL [id number] Documentation Fingerstick Glucose Start: 10/12/24 12:54 Freq: .Q1H Status: Active Protocol: Activity Type Activity Date Activity User E-sign Co-sign Detail Recorded Client Recorded Date Recorded By Document 10/12/24 14:27 N.ESPERANZA [id number] 10/12/24 14:27 NSONIA Intake and Output - 24 Hour Total 10/12/24 11:03 thru 10/12/24 14:28 Intake Total 1000 Balance 1000 Weight 113.398 kg Intake: IV 1000 Falls Risk Assessment History of Falls Previous History 10/12/24 11:28 Contributing Factors Confusion,Unstable, 10/12/24 11:28 Impairments,Incontinence, Medications Ambulatory Aids Uses ambulatory device + 10/12/24 11:28 Tubes/Lines With any additional score 10/12/24 11:28 Gait Evaluation W/any additional score 10/12/24 11:28 Cognition Cognitive impairment 10/12/24 11:28 Fall Total Score 115 10/12/24 11:28 Level of Risk Maximum Risk 10/12/24 11:28 Problems (Last Updated 09/04/24 @ 13:54 by Yaneth Alanis) DKA (diabetic ketoacidosis) (Acute) WAQAR (obstructive sleep apnea) (Chronic) Barretts esophagus (Acute) Combined systolic and diastolic heart failure (Acute) COPD (chronic obstructive pulmonary disease) (Chronic) v v v v v v v v v Sending and/or Receiving Nurses: Please use comment section below to note any information pertinent to the patient hand-off not included above. Information / Comments: Incontinent of urine. [place] area excoriation. Anatomy difficult for external catheter. Pt refused almonte. All questions answered. Report received from: Adrián Jensen
[2024-10-12 17:38] LABS: Magnesium 2.5 mg/dL (1.8-2.4)
[2024-10-12 17:40] LABS: Anion Gap 8.3 mmol/L (3-11); BUN 31 mg/dL (7-18); CO2 28.7 mmol/L (21.0-32.0); Calcium 9.7 mg/dL (8.5-10.1); Chloride 94 mmol/L (98-107); Estimated GFR 33.95 (mL/min/1.73m2); Potassium 4.9 mmol/L (3.5-5.1); Sodium 131 mmol/L (136-145)
[2024-10-12 17:42] LABS: Glucose 770 mg/dL (74-106)
[2024-10-12] MEDS: POTASSIUM CHLORIDE/0.9% NACL 1,000 ML 150 MEQ IV (17:54)
[2024-10-12 19:37] LABS: Anion Gap 10.2 mmol/L (3-11); BUN 30 mg/dL (7-18); CO2 28.8 mmol/L (21.0-32.0); Calcium 9.7 mg/dL (8.5-10.1); Chloride 96 mmol/L (98-107); Estimated GFR 33.95 (mL/min/1.73m2); Potassium 4.2 mmol/L (3.5-5.1); Sodium 135 mmol/L (136-145)
[2024-10-12 19:38] LABS: Glucose 707 mg/dL (74-106)
[2024-10-12 19:40] LABS: Magnesium 2.6 mg/dL (1.8-2.4)
[2024-10-12 21:24] LABS: Magnesium 2.5 mg/dL (1.8-2.4)
[2024-10-12 21:31] LABS: Anion Gap 7.8 mmol/L (3-11); BUN 30 mg/dL (7-18); CO2 30.2 mmol/L (21.0-32.0); Calcium 9.5 mg/dL (8.5-10.1); Chloride 99 mmol/L (98-107); Estimated GFR 36.11 (mL/min/1.73m2); Potassium 4.0 mmol/L (3.5-5.1); Sodium 137 mmol/L (136-145)
[2024-10-12 21:35] LABS: Glucose 644 mg/dL (74-106)
[2024-10-12 23:48] LABS: Magnesium 2.2 mg/dL (1.8-2.4)
[2024-10-12 23:50] LABS: Anion Gap 6.2 mmol/L (3-11); BUN 25 mg/dL (7-18); CO2 27.8 mmol/L (21.0-32.0); Calcium 8.6 mg/dL (8.5-10.1); Chloride 106 mmol/L (98-107); Estimated GFR 44.38 (mL/min/1.73m2); Glucose 498 mg/dL (74-106); Sodium 140 mmol/L (136-145)
[2024-10-13] VITALS (73 sets, daily range): BP systolic 70–130; BP diastolic 39–75; PULSE 39–173; RESP 9–27; TEMP 36.2–36.4; O2SAT 84–96
[2024-10-13 00:05] LABS: Potassium 6.0 mmol/L (3.5-5.1)
[2024-10-13] MEDS: Normal Saline 1,000 ML 150 ML IV ×2 (00:26→07:59)
[2024-10-13] MEDS: Rivaroxaban 10 MG TABLET 20 MG PO ×2 (02:37→16:50)
[2024-10-13 03:37] LABS: BE (Venous) 4 mmol/L (-2-3); HCO3 (Venous) 27 mmol/L (23-28); O2 Sat (Venous) 98 %; TCO2 (Venous) 24 mmol/L (24-29); pCO2 (Venous) 36 mmHg (41-51); pO2 (Venous) 125 mmHg
[2024-10-13 03:49] LABS: Magnesium 2.3 mg/dL (1.8-2.4)
[2024-10-13] MEDS: Ipratropium/Albuterol 4 GM 120 PUFF INH IH ×3 (03:50→15:57)
[2024-10-13 03:54] LABS: Anion Gap 6.5 mmol/L (3-11); BUN 25 mg/dL (7-18); CO2 28.5 mmol/L (21.0-32.0); Calcium 9.0 mg/dL (8.5-10.1); Chloride 105 mmol/L (98-107); Estimated GFR 52.09 (mL/min/1.73m2); Glucose 390 mg/dL (74-106); Sodium 140 mmol/L (136-145)
[2024-10-13 04:01] LABS: Potassium 3.9 mmol/L (3.5-5.1)
[2024-10-13] MEDS: Furosemide 40 MG TAB PO ×2 (08:01→16:50)
[2024-10-13] MEDS: DULoxetine 20 MG CAP PO (08:01)
[2024-10-13] MEDS: Levothyroxine 112 MCG TAB PO (08:02)
[2024-10-13] MEDS: Gabapentin 300 MG CAP 600 MG PO ×2 (08:02→20:44)
[2024-10-13] MEDS: Primidone 250 MG TAB PO (08:03)
[2024-10-13] MEDS: Normal Saline Flush 10 ML SYR IVP ×2 (08:04→20:57)
[2024-10-13] MEDS: Finasteride 5 MG TAB PO (08:04)
--- NOTE | 2024-10-13 08:38 | RESPIRATORY ---
Addendum entered by No Almanza 10/13/24 08:46: 8:45-Left message for pt's asking if she could bring pt's home BiPAP in today if she plans on coming to visit Original Note: Spoke with pt about WAQAR diagnosis and pt advised he has a BIPAP machine through [facility] that he uses every night. RT will reach out to pt's to see if she can bring this home unit in.
[2024-10-13] MEDS: Tiotropium Bromide-Respimat 10 PUFF INH 2 PUFF IH (08:39)
[2024-10-13] MEDS: Metoprolol CR 100 MG TABCR 200 MG PO (09:45)
[2024-10-13] MEDS: Insulin Glargine 300 UNITS/3 ML PEN 15 UNITS SC (09:47)
--- NOTE | 2024-10-13 10:00 | W.PM.PROGNOT ---
Date of Service Date of service: 10/13/24 Time of Service: 10:00 Assessment and Plan Assessment and plan (1) DKA (diabetic ketoacidosis): Status: Acute Assessment and plan: - Patient presented not feeling well, generalized weakness and some confusion after having not checked his blood sugar for a week while on vacation - Blood sugar found to be 909 in the emergency department, with supporting evidence for DKA being acidosis on VBG with a pH of 7.2, ketones in the urine, and an anion gap of 17 Have the patient was started on insulin drip in the emergency department - Based on patients insulin drip requirements he will be started on 15U lantus AM and moderate SSI - continue to monitor blood sugars and adjust insulin as needed (2) Encephalopathy: Status: Acute Assessment and plan: - Patient was confused on admission there was some concern for CVA - However, patient's last known well was greater than 24 hours prior to arrival to the emergency department therefore would be outside the window for intervention - CTA of the head in the emergency department was negative - It may also be acute metabolic encephalopathy in the setting of DKA - While DKA's appears to have improved, patient is still somewhat confused - Will get MRI of the brain on Tuesday (3) Combined systolic and diastolic heart failure: Status: Acute Assessment and plan: - Without acute exacerbation -Continue home statin, 40 mg Lasix, 20 mg lisinopril (4) COPD (chronic obstructive pulmonary disease): Status: Chronic Assessment and plan: - Without acute exacerbation, continue home inhaler regimen (5) Renal insufficiency: Assessment and plan: - Unsure what baseline is, creatinine currently 2.2 - Follow-up a.m. CMP (6) HTN (hypertension): Assessment and plan: - Continue home antihypertensives (7) Barretts esophagus: Status: Acute Assessment and plan: - Continue home PPI (8) Hypothyroidism: Assessment and plan: - Continue home Synthroid (9) Atrial fibrillation: Assessment and plan: - Continue home Xarelto, digoxin, diltiazem Subjective Subjective Interval history since last seen: Patient states that he is doing well but remains confused though improved as compared to admission. Exam Narrative Exam Narrative: Confused, morbidly obese gentleman laying in bed in no acute distress, awake, alert, oriented to person and place only, heart regular rate rhythm, lungs bilaterally, abdomen soft, nontender, nondistended with significant rash noted over perennial area and lower abdomen Objective Last Vital Signs Temp 97.2 F L 10/13/24 07:20 Pulse 85 10/13/24 09:01 Resp 17 10/13/24 09:01 BP 99/57 L 10/13/24 09:01 Pulse Ox 95 10/13/24 09:01 Laboratory Results - last 24 hr 10/12/24 10/12/24 10/12/24 11:35 12:06 12:40 WBC 17.70 H RBC 4.96 Hgb 13.9 Hct 42.2 MCV 85 MCH 28.0 MCHC 32.9 RDW 14.9 H Plt Count 224 MPV 13.6 H Immature Gran % 0.6 Neutrophils % 86.7 Lymphocytes % 4.8 Monocytes % 7.5 Eosinophils % 0.1 Basophils % 0.3 Nucleated RBC % 0.0 Absolute Neutrophils 15.35 H Absolute Lymphocytes 0.85 L Absolute Monocytes 1.33 H Absolute Eosinophils 0.02 Absolute Basophils 0.05 VBG pH 7.27 L VBG pCO2 47 VBG pO2 46 VBG HCO3 22 L VBG Total CO2 20 L VBG O2 Saturation 77 VBG Base Excess -5 L VBG Lactate Sodium Cancelled 127 L Potassium Cancelled 4.6 Chloride Cancelled 88 L Carbon Dioxide Cancelled 22.2 Anion Gap Cancelled 16.8 H BUN Cancelled 32 H Creatinine Cancelled 2.2 H Est GFR (CKD-EPI 2020) Cancelled 30.28 Glucose Cancelled 909 H* Calcium Cancelled 9.3 Phosphorus Magnesium Total Bilirubin Cancelled 0.8 AST Cancelled 20 ALT Cancelled 33 Alkaline Phosphatase Cancelled 266 H Total Protein Cancelled 7.2 Albumin Cancelled 3.5 Urine Color Yellow Urine Clarity Clear Urine pH 5.5 Ur Specific [place] <= 1.005 Urine Protein Negative Urine Ketones 15 H Urine Blood Trace-intact H Urine Nitrite Negative Urine Bilirubin Negative Urine Urobilinogen 0.2 Ur Leukocyte Esterase Negative Urine RBC 0-2 Urine WBC Negative Ur Epithelial Cells Rare Urine Crystals Negative Urine Bacteria Negative Urine Casts Negative Urine Mucus Negative Ur Culture Indicated? No Urine Glucose >=1000 H 10/12/24 10/12/24 10/12/24 13:59 15:00 17:05 WBC RBC Hgb Hct MCV MCH MCHC RDW Plt Count MPV Immature Gran % Neutrophils % Lymphocytes % Monocytes % Eosinophils % Basophils % Nucleated RBC % Absolute Neutrophils Absolute Lymphocytes Absolute Monocytes Absolute Eosinophils Absolute Basophils VBG pH VBG pCO2 VBG pO2 VBG HCO3 VBG Total CO2 VBG O2 Saturation VBG Base Excess VBG Lactate 2.4 H* Sodium 128 L Cancelled 131 L Potassium 5.1 Cancelled 4.9 Chloride 90 L Cancelled 94 L Carbon Dioxide 22.8 Cancelled 28.7 Anion Gap 15.2 H Cancelled 8.3 BUN 32 H Cancelled 31 H Creatinine 2.2 H Cancelled 2.0 H Est GFR (CKD-EPI 2020) 30.28 Cancelled 33.95 Glucose 873 H* Cancelled 770 H* Calcium 9.5 Cancelled 9.7 Phosphorus 5.2 H Magnesium 2.4 2.5 H Total Bilirubin AST ALT Alkaline Phosphatase Total Protein Albumin Urine Color Urine Clarity Urine pH Ur Specific [place] Urine Protein Urine Ketones Urine Blood Urine Nitrite Urine Bilirubin Urine Urobilinogen Ur Leukocyte Esterase Urine RBC Urine WBC Ur Epithelial Cells Urine Crystals Urine Bacteria Urine Casts Urine Mucus Ur Culture Indicated? Urine Glucose 10/12/24 10/12/24 10/12/24 19:05 21:00 23:28 WBC RBC Hgb Hct MCV MCH MCHC RDW Plt Count MPV Immature Gran % Neutrophils % Lymphocytes % Monocytes % Eosinophils % Basophils % Nucleated RBC % Absolute Neutrophils Absolute Lymphocytes Absolute Monocytes Absolute Eosinophils Absolute Basophils VBG pH VBG pCO2 VBG pO2 VBG HCO3 VBG Total CO2 VBG O2 Saturation VBG Base Excess VBG Lactate Sodium 135 L 137 140 Potassium 4.2 4.0 6.0 H* D Chloride 96 L 99 106 Carbon Dioxide 28.8 30.2 27.8 Anion Gap 10.2 7.8 6.2 BUN 30 H 30 H 25 H Creatinine 2.0 H 1.9 H 1.6 H Est GFR (CKD-EPI 2020) 33.95 36.11 44.38 Glucose 707 H* 644 H* 498 H Calcium 9.7 9.5 8.6 Phosphorus Magnesium 2.6 H 2.5 H 2.2 Total Bilirubin AST ALT Alkaline Phosphatase Total Protein Albumin Urine Color Urine Clarity Urine pH Ur Specific [place] Urine Protein Urine Ketones Urine Blood Urine Nitrite Urine Bilirubin Urine Urobilinogen Ur Leukocyte Esterase Urine RBC Urine WBC Ur Epithelial Cells Urine Crystals Urine Bacteria Urine Casts Urine Mucus Ur Culture Indicated? Urine Glucose 10/13/24 10/13/24 03:35 05:35 WBC RBC Hgb Hct MCV MCH MCHC RDW Plt Count MPV Immature Gran % Neutrophils % Lymphocytes % Monocytes % Eosinophils % Basophils % Nucleated RBC % Absolute Neutrophils Absolute Lymphocytes Absolute Monocytes Absolute Eosinophils Absolute Basophils VBG pH 7.49 H VBG pCO2 36 L VBG pO2 125 VBG HCO3 27 VBG Total CO2 24 VBG O2 Saturation 98 VBG Base Excess 4 H VBG Lactate Sodium 140 Cancelled Potassium 3.9 D Cancelled Chloride 105 Cancelled Carbon Dioxide 28.5 Cancelled Anion Gap 6.5 Cancelled BUN 25 H Cancelled Creatinine 1.4 H Cancelled Est GFR (CKD-EPI 2020) 52.09 Cancelled Glucose 390 H Cancelled Calcium 9.0 Cancelled Phosphorus Magnesium 2.3 Total Bilirubin AST ALT Alkaline Phosphatase Total Protein Albumin Urine Color Urine Clarity Urine pH Ur Specific [place] Urine Protein Urine Ketones Urine Blood Urine Nitrite Urine Bilirubin Urine Urobilinogen Ur Leukocyte Esterase Urine RBC Urine WBC Ur Epithelial Cells Urine Crystals Urine Bacteria Urine Casts Urine Mucus Ur Culture Indicated? Urine Glucose Time Spent with Patient Time Spent with Patient: >50 minutes Time was spent: preparing to see the patient(eg.review tests), obtaining and/or reviewing separately otained hiistory, ordering medications,tests, procedures, referring, communicating with other health care team assistant, indepentently interpreting results, counseling the patient and care coordination
--- NOTE | 2024-10-13 10:23 | PDOC.CMIN ---
Date of service: 10/13/24 Time of Service: 10:25 Care Management Initial Assmt Initial Assessment Reason for Hospitalization: DKA Functional Status/Living Situation Patient Presentation: Derrek was sleeping soundly when CM attempted to meet with him today. Per MD, he remains confused, although his mentation appears to be improving. Per chart review, he and his were in the area on vacation, and his called EMS because he was not acting like himself. He is currently being treated at ICU level of care. CM will continue to follow. Town of Residence: [place], [place] Resides with: Spouse (Juana) Employment Status: Retired Instrumental Activities of Daily Living (ADLs): Independent Medications Medication Management: No Issues/Barriers identified Advance Directives Advance Directives: Do you have an Advance Directive: Y 07/20/17, 11:[address] [facility]: N 07/20/17, 11:38 Date Asked 10/12/24 10/12/24, 11:16 AD Date Reviewed COLST On File at [facility] COLST Date Scanned Code Status Resuscitation Status Full Code Insurance Coverage/Financial Issues Insurance: [facility] 4 Life [facility] supplement Care Team Visit Care Team Role Provider Type Shea Bains Primary Care Provider OSTEOPATHIC DOCTOR Latrice Alfaro Emergency Provider NURSE PRACTITIONER Jose Miguel Bowles MD Admit Provider [facility] STAFF PHYSICIAN Attending Provider Discharge Potential Discharge Needs: PCP F/U Appt Anticipated Barriers to Discharge: None Identified Patient/Family Education Needs: Review discharge instructions, discuss Ask Me Three Transportation: Private vehicle Plan: Anticipate Derrek will return home once medically cleared. His will drive him home via private vehicle. He will follow up with his PCP and discharge plan of care. CM will continue to follow. Social Determinants of Health Screening Social Determinants of health last assessed in clinic: 10/12/24 Will the Patient Participate in the Screening?: Unable to obtain Do you worry about having a steady place to live?: no Problems where you live: no known problems In the past 12 months, have you had to go without electric, gas, oil or water in your home?: no Has lack of transportation kept you from medical appointments or from doing things needed for daily living?: no Has anyone in your life made you feel unsafe or unsupported?: no How hard is it for you to pay for the very basics like food, housing, medical care, and heating? Would you say it is:: Not hard at all Do you want help finding or keeping work or a job?: I do not need or want help If for any reason you need help with day-to-day activities such as bathing, preparing meals, shopping, managing finances, etc., do you get the help you need?: I don?t need any help How often do you feel lonely or isolated from those around you?: Never Do you speak a language other than [place] at home?: No Does the patient want assistance with any of the above?: No PFSH All Active Problems (Updated 10/13/24 @ 11:33 by Jose Miguel Bowles MD) Encephalopathy (Acute) DKA (diabetic ketoacidosis) (Acute) Personal history of nicotine dependence (Acute) WAQAR (obstructive sleep apnea) (Chronic) Sacroiliac joint dysfunction of right side (Acute) Barretts esophagus (Acute) Type 2 diabetes mellitus with hyperglycemia (Acute) Combined systolic and diastolic heart failure (Acute) EF 30% on echo 04/2021, significant change from EF 55% IN 2019 + MR on echo 04/2021 Tremor of left hand (Acute) Macular degeneration of both eyes (Acute) COPD (chronic obstructive pulmonary disease) (Chronic) Restrictive lung disease (Acute) 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) Medical History (Updated 10/13/24 @ 11:33 by oJse Miguel Bowles MD) Back pain, lumbosacral Bilateral age-related macular degeneration Brittle nails Right shoulder pain Left shoulder pain Foot pain Osteoarthritis Constipation Spinal stenosis, lumbar region with neurogenic claudication Mitral regurgitation Tobacco use senior living current use of anticoagulant therapy Right knee pain Renal insufficiency Hyperkalemia Nuclear age-related cataract, both eyes Localized swelling of right lower leg Overactive bladder Type 2 diabetes mellitus with diabetic chronic kidney disease Obesity, morbid, BMI 40.0-49.9 PHT (portal hypertension) AAA (abdominal aortic aneurysm) COPD, severe Pyarthrosis PSA (psoriatic arthritis) ASCVD (arteriosclerotic cardiovascular disease) Health care maintenance Skin complaints Alopecia Arthritis of both knees Hypercholesteremia Arthritis of right shoulder region Breast lump or mass HTN (hypertension) Pleural effusion, bilateral GERD (gastroesophageal reflux disease) Peripheral edema Hypoxia Melanocytic nevus of trunk Hypothyroidism Left Hyperlipidemia Hyperglycemia Essential and other specified forms of tremor Atrial fibrillation Anemia CAD (coronary artery disease) Heart failure Morbid obesity SOB (shortness of breath) Fatigue Sleep apnea Low back pain Primary osteoarthritis of right shoulder BPH (benign prostatic hyperplasia) Surgical History (Updated 09/04/24 @ 13:54 by Yaneth Alanis) S/P colonoscopy History of esophagogastroduodenoscopy (EGD) 04/2021, biopsies pending Arthroplasty of knee 03/2016 Left Family History Mother Emphysema of lung Father CHF (congestive heart failure) Sister Waldenstrom's disease Arthritis Brother Hypertension Social History Smoking/Tobacco Use Status: Former Tobacco Use Quit Date: 02/07/94 Smoking risk assessment performed?: Yes Alcohol Intake: never Drug use: Never Substance use type: does not use Household members: spouse Housing: house 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
[2024-10-13] MEDS: Insulin Aspart 300 UNITS/3 ML PEN SC ×3 (11:45→22:36)
[2024-10-13] MEDS: Atorvastatin 20 MG TAB PO (20:50)
[2024-10-14] VITALS (52 sets, daily range): BP systolic 66–115; BP diastolic 41–89; PULSE 54–158; RESP 11–24; TEMP 36.3–36.7; O2SAT 86–95
--- NOTE | 2024-10-14 | DI.CT_ITS ---
Exam(s) CT HEAD WO EXAM: CT HEAD WO CLINICAL HISTORY: confusion. TECHNIQUE: Imaging Protocol: Axial computed tomography images with coronal and sagittal reformatted images were created and reviewed COMPARISON: No exams were available for comparison FINDINGS: Ventricles and Extra axial spaces: Normal in size and morphology for the patient's age. Hemorrhage: None. Cerebral parenchyma: No evidence of acute infarct or mass. Mild atrophy. White matter changes small vessel disease. Midline shift: None. Brainstem/Cerebellum: Normal. Bones: No skull or facial fractures. Visualized Paranasal sinuses:Clear. Mastoids: Clear. Soft Tissues: Unremarkable. ORBITS: Unremarkable. PITUITARY: Not enlarged. IMPRESSION: No acute intracranial process. The preliminary [facility] report was reviewed. RADIATION DOSE DELIVERED: Total DLP DATA REPOSITORY: All CT scans at this facility are submitted to the National Radiology Data Registry (NRDR) Dose Index Registry (DIR) with the [employer] (ACR). RADIATION OPTIMIZATION: All CT scans at this facility use at least one of these dose optimization techniques: automated exposure control; mA and/or kV adjustment per patient size (includes targeted exams where dose is matched to clinical indication); or iterative reconstruction.
[2024-10-14] MEDS: Ipratropium/Albuterol 4 GM 120 PUFF INH IH ×2 (04:11→22:16)
[2024-10-14] MEDS: Levothyroxine 112 MCG TAB PO (06:07)
[2024-10-14 06:26] LABS: HCT 40.2 % (40.0-50.0); HGB 13.3 g/dL (13.5-17.5); MCH 28.8 pg (27.0-33.0); MCHC 33.1 % (32.0-36.0); MCV 87 fL (80-95); RBC 4.62 10^6/uL (4.36-5.78); RDW 15.4 % (11.8-14.1); RDW-SD 48.4 fL; WBC 8.74 10^3/uL (4.4-10.8)
[2024-10-14 06:44] LABS: Anion Gap 13.9 mmol/L (3-11); BUN 22 mg/dL (7-18); CO2 25.1 mmol/L (21.0-32.0); Calcium 8.7 mg/dL (8.5-10.1); Chloride 102 mmol/L (98-107); Estimated GFR 62.67 (mL/min/1.73m2); Glucose 246 mg/dL (74-106); Potassium 4.1 mmol/L (3.5-5.1); Sodium 141 mmol/L (136-145)
[2024-10-14] MEDS: Furosemide 40 MG TAB PO ×2 (08:56→17:02)
[2024-10-14] MEDS: DULoxetine 20 MG CAP PO (08:56)
[2024-10-14] MEDS: Primidone 250 MG TAB PO (08:56)
[2024-10-14] MEDS: Finasteride 5 MG TAB PO (08:57)
[2024-10-14] MEDS: Gabapentin 300 MG CAP 600 MG PO ×2 (08:57→20:33)
[2024-10-14] MEDS: Normal Saline Flush 10 ML SYR IVP ×2 (08:58→20:33)
[2024-10-14] MEDS: Insulin Aspart 300 UNITS/3 ML PEN SC ×4 (09:05→21:59)
[2024-10-14] MEDS: Insulin Glargine 300 UNITS/3 ML PEN 18 UNITS SC (09:06)
[2024-10-14] MEDS: Tiotropium Bromide-Respimat 10 PUFF INH 2 PUFF IH (09:20)
[2024-10-14 10:37] LABS: TSH 2.20 uIU/mL (0.36-3.74)
--- NOTE | 2024-10-14 11:31 | DI.[facility]_ITS ---
PROCEDURE INFORMATION: Exam: CT Head Without Contrast Exam date and time: 10/14/2024 11:12 AM Age: 74 years old Clinical indication: Other: Confusion TECHNIQUE: Imaging protocol: Computed tomography of the head without contrast. COMPARISON: No relevant prior studies available. FINDINGS: Brain: Age related diffuse parenchymal volume loss. There are bilateral periventricular white matter and centrum semiovale hypodensities, consistent with chronic ischemic small vessel disease. No recent infarct, intracranial bleed or mass effect. Cerebral ventricles: Ex vacuo dilatation of the ventricles. Paranasal sinuses: Visualized sinuses are unremarkable. No fluid levels. Mastoid air cells: Visualized mastoid air cells are well aerated. Bones: Unremarkable. No acute fracture. Soft tissues: Unremarkable. IMPRESSION: No large territorial infarct or intracranial bleed. Dictated and Authenticated by: Joseluis Cruz MD. Orderin Jelena Gillespie MD
--- NOTE | 2024-10-14 15:28 | PGE_ITS ---
Date of Service Date of service: 10/14/24 Time of Service: 15:28 Assessment and Plan Assessment and plan (1) DKA (diabetic ketoacidosis): Status: Acute Assessment and plan: - Patient presented not feeling well, generalized weakness and some confusion after having not checked his blood sugar for a week while on vacation - Blood sugar found to be 909 in the emergency department, with supporting evidence for DKA being acidosis on VBG with a pH of 7.2, ketones in the urine, and an anion gap of 17 Have the patient was started on insulin drip in the emergency department - Based on patients insulin drip requirements was started on 15U lantus AM and moderate SSI, Lantus increased to 18 units on the morning of 10/14/2024 due to persistently elevated blood glucose - continue to monitor blood sugars and adjust insulin as needed (2) Encephalopathy: Status: Acute Assessment and plan: - Patient was confused on admission there was some concern for CVA - However, patient's last known well was greater than 24 hours prior to arrival to the emergency department therefore would be outside the window for intervention - CT of the head negative - It may also be acute metabolic encephalopathy in the setting of DKA - DKA improved, patient's mental status also improving - Patient usually takes his primidone in the evening and has been known to worsen confusion, this has been changed from a.m. to p.m. - If patient not back to his baseline by 10/15/2024 will order MRI (3) Combined systolic and diastolic heart failure: Status: Acute Assessment and plan: - Without acute exacerbation -Continue home statin, 40 mg Lasix, 20 mg lisinopril (4) COPD (chronic obstructive pulmonary disease): Status: Chronic Assessment and plan: - Without acute exacerbation, continue home inhaler regimen (5) Renal insufficiency: Assessment and plan: - Unsure what baseline is, creatinine currently 2.2 - Follow-up a.m. CMP (6) HTN (hypertension): Assessment and plan: - Continue home antihypertensives (7) Barretts esophagus: Status: Acute Assessment and plan: - Continue home PPI (8) Hypothyroidism: Assessment and plan: - Continue home Synthroid (9) Atrial fibrillation: Assessment and plan: - Continue home Xarelto, digoxin, diltiazem (10) Essential tremor: Status: Acute Assessment and plan: - Reportedly diagnosed with essential tremor taking primidone and gabapentin - However, patient also has Parkinson-like features and there has been concern for Parkinson's - Patient has also had some autonomic instability here with labile blood pressures - Will recommend outpatient neurology appointment at discharge Subjective Subjective Interval history since last seen: Patient more awake and less confused today as compared to previous days though reportedly not at baseline. He has no complaints or concerns at this time. Exam Narrative Exam Narrative: Confused, morbidly obese gentleman laying in bed in no acute distress, awake, alert, oriented to person and place only, heart regular rate rhythm, lungs bilaterally, abdomen soft, nontender, nondistended with significant rash noted over perennial area and lower abdomen Objective Last Vital Signs Temp 97.3 F L 10/14/24 13:25 Pulse 81 10/14/24 12:02 Resp 19 10/14/24 12:02 BP 100/52 L 10/14/24 12:02 Pulse Ox 91 L 10/14/24 12:02 Laboratory Results - last 24 hr 10/13/24 10/13/24 10/14/24 07:30 11:30 05:56 WBC Cancelled 8.74 RBC Cancelled 4.62 Hgb Cancelled 13.3 L Hct Cancelled 40.2 MCV Cancelled 87 MCH Cancelled 28.8 MCHC Cancelled 33.1 RDW Cancelled 15.4 H Plt Count Cancelled MPV Cancelled Sodium Cancelled Cancelled 141 Potassium Cancelled Cancelled 4.1 Chloride Cancelled Cancelled 102 Carbon Dioxide Cancelled Cancelled 25.1 Anion Gap Cancelled Cancelled 13.9 H BUN Cancelled Cancelled 22 H Creatinine Cancelled Cancelled 1.2 Est GFR (CKD-EPI 2020) Cancelled Cancelled 62.67 Glucose Cancelled Cancelled 246 H Calcium Cancelled Cancelled 8.7 TSH 10/14/24 10:00 WBC RBC Hgb Hct MCV MCH MCHC RDW Plt Count MPV Sodium Potassium Chloride Carbon Dioxide Anion Gap BUN Creatinine Est GFR (CKD-EPI 2020) Glucose Calcium TSH 2.20 Time Spent with Patient Time Spent with Patient: >50 minutes Time was spent: preparing to see the patient(eg.review tests), obtaining and/or reviewing separately otained hiistory, ordering medications,tests, procedures, referring, communicating with other health assurance services manager health care, indepentently interpreting results, counseling the patient and care coordination
[2024-10-14] MEDS: Rivaroxaban 10 MG TABLET 20 MG PO (17:02)
[2024-10-14] MEDS: Atorvastatin 20 MG TAB PO (20:33)
[2024-10-15] VITALS (45 sets, daily range): BP systolic 83–120; BP diastolic 50–102; PULSE 62–137; RESP 11–23; TEMP 35.8; O2SAT 88–97
[2024-10-15] MEDS: Acetaminophen 325 MG TAB 650 MG PO (02:02)
[2024-10-15] MEDS: Tiotropium Bromide-Respimat 10 PUFF INH 2 PUFF IH (08:02)
[2024-10-15] MEDS: Normal Saline Flush 10 ML SYR IVP ×2 (08:54→19:44)
[2024-10-15] MEDS: Metoprolol CR 100 MG TABCR 200 MG PO (08:55)
[2024-10-15] MEDS: Digoxin 0.125 MG TAB PO (08:55)
[2024-10-15] MEDS: DULoxetine 20 MG CAP PO (08:55)
[2024-10-15] MEDS: dilTIAZem CD 120 MG CAPCR PO (08:55)
[2024-10-15] MEDS: Gabapentin 300 MG CAP 600 MG PO ×2 (08:55→19:43)
[2024-10-15] MEDS: Levothyroxine 112 MCG TAB PO (08:56)
[2024-10-15] MEDS: Furosemide 40 MG TAB PO ×2 (08:56→16:16)
[2024-10-15] MEDS: Finasteride 5 MG TAB PO (08:56)
[2024-10-15] MEDS: Lisinopril 20 MG TAB PO (08:56)
[2024-10-15] MEDS: Insulin Aspart 300 UNITS/3 ML PEN SC ×4 (09:07→21:47)
[2024-10-15] MEDS: Insulin Glargine 300 UNITS/3 ML PEN 18 UNITS SC (09:08)
--- NOTE | 2024-10-15 09:24 | PDOC.CMDIS ---
Date of service: 10/15/24 Time of Service: 09:24 LACE Index Scoring Tool Questions: Length of Stay (in days): 3 Was the patient admitted via the E.D.?: Yes Comorbidities: Diabetes w/o Complication and Chronic Pulmonary Disease E.D. Visits: 1 Answers: Total Score: 10 Risk of Readmission: High Risk Care Management Discharge Plan Reason for Hospitalization: DKA Discharge Plan: Derrek was discharged home via private vehicle with his . He will follow up with his primary care provider and continue per established discharge plan. No new services were ordered prior to discharge. Patient/Family Education Needs: Review discharge instructions and plan to follow up as an outpatient. Discuss ask me three.
[2024-10-15] MEDS: Ipratropium/Albuterol 4 GM 120 PUFF INH IH (10:19)
--- NOTE | 2024-10-15 14:19 | PGE_ITS ---
Date of Service Date of service: 10/15/24 Time of Service: 14:19 Assessment and Plan Assessment and plan (1) DKA (diabetic ketoacidosis): Status: Acute Assessment and plan: - Patient presented not feeling well, generalized weakness and some confusion after having not checked his blood sugar for a week while on vacation - Blood sugar found to be 909 in the emergency department, with supporting evidence for DKA being acidosis on VBG with a pH of 7.2, ketones in the urine, and an anion gap of 17 Have the patient was started on insulin drip in the emergency department - Based on patients insulin drip requirements was started on 15U lantus AM and moderate SSI, Lantus increased to 18 units on the morning of 10/14/2024 due to persistently elevated blood glucose - continue to monitor blood sugars and adjust insulin as needed (2) Encephalopathy: Status: Acute Assessment and plan: - Patient was confused on admission there was some concern for CVA - However, patient's last known well was greater than 24 hours prior to arrival to the emergency department therefore would be outside the window for intervention - CT of the head negative - It may also be acute metabolic encephalopathy in the setting of DKA - DKA improved, patient's mental status also improving - Patient usually takes his primidone in the evening and has been known to worsen confusion, this has been changed from a.m. to p.m. - Plan for likely discharge tomorrow 10/16/2024 as per patient and family he is back to his mental status baseline, will work with physical therapy (3) Combined systolic and diastolic heart failure: Status: Acute Assessment and plan: - Without acute exacerbation -Continue home statin, 40 mg Lasix, 20 mg lisinopril (4) COPD (chronic obstructive pulmonary disease): Status: Chronic Assessment and plan: - Without acute exacerbation, continue home inhaler regimen (5) Renal insufficiency: Assessment and plan: - Unsure what baseline is, creatinine currently 2.2 - Follow-up a.m. CMP (6) HTN (hypertension): Assessment and plan: - Continue home antihypertensives (7) Barretts esophagus: Status: Acute Assessment and plan: - Continue home PPI (8) Hypothyroidism: Assessment and plan: - Continue home Synthroid (9) Atrial fibrillation: Assessment and plan: - Continue home Xarelto, digoxin, diltiazem (10) Essential tremor: Status: Acute Assessment and plan: - Reportedly diagnosed with essential tremor taking primidone and gabapentin - However, patient also has Parkinson-like features and there has been concern for Parkinson's - Patient has also had some autonomic instability here with labile blood pressures - Will recommend outpatient neurology appointment at discharge Subjective Subjective Interval history since last seen: Patient states that he is feeling much better today and close to his baseline. Otherwise he has no other complaints or concerns at this time. Exam Narrative Exam Narrative: Confused, morbidly obese gentleman laying in bed in no acute distress, awake, alert, ANO x 4,, heart regular rate rhythm, lungs bilaterally, abdomen soft, nontender, nondistended with significant rash noted over perennial area and lower abdomen Objective Last Vital Signs Temp 98.1 F 10/14/24 19:28 Pulse 89 10/15/24 13:43 Resp 19 10/15/24 13:43 BP 91/55 L 10/15/24 13:43 Pulse Ox 96 10/15/24 13:43 Time Spent with Patient Time Spent with Patient: >50 minutes Time was spent: preparing to see the patient(eg.review tests), obtaining and/or reviewing separately otained hiistory, ordering medications,tests, procedures, referring, communicating with other health dialysis patient care technician, indepentently interpreting results, counseling the patient and care coordination
--- NOTE | 2024-10-15 15:43 | PT.INIE ---
PT Notes Visit Reasons: DKA Physical Therapy Inpatient Initial Evaluation Date:10/15/2024 Referring Doctor: Dr Bowles PT Orders: PT CONSULT: PT Evaluation and treatment Precautions: Standard, Telemetry , IV access Patient Profile/Admitting Diagnosis:Ayesha Anglin is a 74 yo male presenting with a past medical history of IDDM, COPD, systolic and diastolic heart failure last EF of 45% in February 2023, hypertension, WAQAR, hypothyroidism, Luciano's esophagus, BPH, lumbar spine stenosis, and morbid obesity who presents to the emergency department on 10/12/2024 with not feeling well, confusion and elevated blood sugar. Patient diagnosed with diabetic ketoacidosis, CHF, hypertension, A-fib. Patient transferred to ICU unit for further medical management with PT consult placed on 10/15/2024 in preparation for discharge. PMHX: DKA (diabetic ketoacidosis) (Acute) Personal history of nicotine dependence (Acute) WAQAR (obstructive sleep apnea) (Chronic) Sacroiliac joint dysfunction of right side (Acute) Barretts esophagus (Acute) Type 2 diabetes mellitus with hyperglycemia (Acute) Combined systolic and diastolic heart failure (Acute) EF 30% on echo 04/2021, significant change from EF 55% IN 2019 + MR on echo 04/2021Tremor of left hand (Acute) Macular degeneration of both eyes (Acute) COPD (chronic obstructive pulmonary disease) (Chronic) Restrictive lung disease (Acute) 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) Medical History (Updated 10/12/24 @ 15:59 by Latrice Alfaro) Back pain, lumbosacral Bilateral age-related macular degeneration Brittle nails Right shoulder pain Left shoulder pain Foot pain Osteoarthritis Constipation Spinal stenosis, lumbar region with neurogenic claudication Mitral regurgitation Tobacco use detention current use of anticoagulant therapy Right knee pain Renal insufficiency Hyperkalemia Nuclear age-related cataract, both eyes Localized swelling of right lower leg Overactive bladder Type 2 diabetes mellitus with diabetic chronic kidney disease Obesity, morbid, BMI 40.0-49.9 PHT (portal hypertension) AAA (abdominal aortic aneurysm) COPD, severe Pyarthrosis PSA (psoriatic arthritis) ASCVD (arteriosclerotic cardiovascular disease) Health care maintenance Skin complaints Alopecia Arthritis of both knees Hypercholesteremia Arthritis of right shoulder region Breast lump or mass HTN (hypertension) Pleural effusion, bilateral GERD (gastroesophageal reflux disease) Peripheral edema Hypoxia Melanocytic nevus of trunk Hypothyroidism LeftHyperlipidemia Hyperglycemia Essential and other specified forms of tremor Atrial fibrillation Anemia CAD (coronary artery disease) Heart failure Morbid obesity SOB (shortness of breath) Fatigue Sleep apnea Low back pain Primary osteoarthritis of right shoulder BPH (benign prostatic hyperplasia) Surgical History (Updated 09/04/24 @ 13:54 by Yaneth Alanis) S/P colonoscopy History of esophagogastroduodenoscopy (EGD) 04/2021, biopsies pendingArthroplasty of knee 03/2016 Left Social History/Home Situation: Patient resides in single-family home 5 steps to enter with railing on the right. Patient reports he will be discharging to his camper which has 3 steps to enter with a grab bar. Patient reports independent ambulation within home without device and utilizes a cane or walker for outdoor mobility. Patient independent with ADLs Equipment Owned/DME: FWW, 4 wheeled walker, canes Subjective: Patient reports he is feeling much better and hopeful he will be able to return to his camp tomorrow. Patient states he has 3 steps with a grab bar to enter the camp. Patient reports he has a hide bed at [facility] and utilizes a stepstool to get in. Objective: [] General Observation: Male presented seated in chair with telemetry in place family visiting. Mental Status: Alert and oriented x 4, cooperative, able to follow instructions, agreeable to participate in evaluation. Patient noted with intermittent word finding deficits. Pain: denied Vitals: Manual BP 110/70, 78bpm 94% on RA at rest ROM: [] Right Upper Extremity: WFL Left Upper Extremity: WFL Right Lower Extremity: WFL limited by body habitus Left Lower Extremity: WFL limited by body habitus Strength: [] BUE: Shoulder 3+/5, elbow 3+/5 hand grasp strong BLE: Hip abduction 3-/5, hip extension 3/5, flexion 3/5, knee 3/5, ankle 3/5 Sensation: diminished to light touch B feet , dulled to finger tips Bed Mobility/Transfers: [] Supine to sit CGA with HOB elevated Sit to stand CGA from bed Stand to sit SBA Bed to chair CGA with and without FWW Gait: amb with FWW CGA 65 feet x 2 excessive lateral weight shift B,cues to reduce speed intermittently Balance: [] Static Sitting: Normal Dynamic Sitting: Good Static Standing: Good Dynamic Standing: Good minus with 1 upper extremity support Special Tests: [] Mobility Limitations Standardized Measure [] [facility] AM-PAC 6 clicks Basic Mobility Inpatient Short Form: [] Raw Score: 21 CMS Score: 28.97% Informed Consent/Education: Patient instructed in purpose of PT consult. Assessment: Patient is a 74-year-old male who presents with clinical signs and symptoms consistent with current/admitting diagnoses that have resulted to mobility limitations, gait instability, generalized weakness, and impairment of motor control as demonstrated by the following impairment level findings: 1. Decreased strength to BLE major muscle groups 2. Impaired standing balance 3. Limitation of joint range of motion in B shoulders 4. Impaired functional activity tolerance 5. impaired sensation B feet Impairments are contributing to the following functional limitations: 1. Inability to safely ambulate without assistive device 2. Increase completion time for mobility ADL performance 3. Increased fall risk 4. difficulty performing stairs without assistance Patient is assessed as a moderate complexity based on the following: History: 74-year-old male with impairment level findings, functional limitations, and past medical history as indicated above Examination: Demonstrable impairment in strength, balance, and mobility level with underlying impairments and functional limitations as documented above Presentation: evolving Decision Making: moderate Goals: 1. SBA ambulation with FWW 100 feet 2. SBA 3 steps with rail/grab bar to safely enter the camper he will be discharging too 3. SBA transfers all surfaces Plan of Care/Treatment Plan: 1-2x/day, 7 days/week x 1 week. Plan of care has been reviewed with the [employer] providing the service under Physical Therapy direction. Initiate Physical Therapy intervention for strengthening, bed mobility, transfers, gait, stairs, balance training, use of assistive device. DISCHARGE RECOMMENDATIONS: Home with HHPT TREATMENT CODE/TIME: [id number] Thank you for the opportunity to participate in the care of this patient. Kim Paige, PT [facility]
--- NOTE | 2024-10-15 15:48 | CMPROGNOTE_ITS ---
Date of service: 10/15/24 Time of Service: 15:48 Care Management Progress Note Progress Note Text Progress Note Text: Derrek was awake and sitting in a chair when CM met with him. He is polite and easy to engage in conversation. He is satisfied with the care he has received this admission, which he reports is superior to other hospitals. He states that he feels better, and is planning to discharge back [place] where he [place] through [place]. His home is in [place], [place]. Patient may benefit from a PT evaluation. Discharge Potential Discharge Needs: Consult Consult Services Needed: Other (Neurology) and PCP F/U Appt Anticipated Barriers to Discharge: None Identified Patient/Family Education Needs: Review discharge instructions, discuss Ask Me Three Transportation: Private vehicle Plan: Anticipate Derrek will return home once medically cleared. His will drive him home via private vehicle. He will follow up with his PCP, neurology and discharge plan of care. CM will continue to follow. Social Determinants of Health Screening Social Determinants of health last assessed in clinic: 10/12/24 Will the Patient Participate in the Screening?: Unable to obtain Do you worry about having a steady place to live?: no Problems where you live: no known problems In the past 12 months, have you had to go without electric, gas, oil or water in your home?: no Has lack of transportation kept you from medical appointments or from doing things needed for daily living?: no Has anyone in your life made you feel unsafe or unsupported?: no How hard is it for you to pay for the very basics like food, housing, medical care, and heating? Would you say it is:: Not hard at all Do you want help finding or keeping work or a job?: I do not need or want help If for any reason you need help with day-to-day activities such as bathing, preparing meals, shopping, managing finances, etc., do you get the help you need?: I don?t need any help How often do you feel lonely or isolated from those around you?: Never Do you speak a language other than Greenlandic at home?: No Does the patient want assistance with any of the above?: No
[2024-10-15] MEDS: Rivaroxaban 10 MG TABLET 20 MG PO (16:16)
[2024-10-15] MEDS: Refresh PLUS Eye Drops 0.4ml 1 EACH OU (17:06)
[2024-10-15] MEDS: Primidone 250 MG TAB PO (19:43)
[2024-10-15] MEDS: Polyethylene Glycol 3350 17 GM PACKET PO (19:43)
[2024-10-15] MEDS: Atorvastatin 20 MG TAB PO (19:43)
[2024-10-16] VITALS (8 sets, daily range): BP systolic 88–110; BP diastolic 54–70; PULSE 64–75; RESP 16–18; TEMP 36.3–36.7; O2SAT 94–97
[2024-10-16] MEDS: Nystatin POWDER 60 GM JAR TP ×4 (00:08→20:48)
[2024-10-16 01:50] LABS: Glucose >=1000 mg/dL (Negative)
[2024-10-16 01:56] LABS: C & S Indicated? Yes; WBC >50 HPF (0-5)
[2024-10-16] MEDS: cefTRIAXone 1 GM/50 ML BAG IVPB (04:40)
[2024-10-16] MEDS: Normal Saline Flush 10 ML SYR IVP ×4 (04:41→21:36)
[2024-10-16] MEDS: Levothyroxine 112 MCG TAB PO (05:33)
[2024-10-16 06:52] LABS: Anion Gap 10.3 mmol/L (3-11); BUN 21 mg/dL (7-18); CO2 27.7 mmol/L (21.0-32.0); Calcium 8.7 mg/dL (8.5-10.1); Chloride 99 mmol/L (98-107); Estimated GFR 69.57 (mL/min/1.73m2); Glucose 240 mg/dL (74-106); Potassium 3.3 mmol/L (3.5-5.1); Sodium 137 mmol/L (136-145)
[2024-10-16] MEDS: Tiotropium Bromide-Respimat 10 PUFF INH 2 PUFF IH (08:02)
[2024-10-16] MEDS: Insulin Aspart 300 UNITS/3 ML PEN SC ×4 (08:09→22:14)
[2024-10-16] MEDS: Insulin Glargine 300 UNITS/3 ML PEN 18 UNITS SC (08:10)
[2024-10-16] MEDS: DULoxetine 20 MG CAP PO (08:22)
[2024-10-16] MEDS: Gabapentin 300 MG CAP 600 MG PO ×2 (08:22→20:45)
[2024-10-16] MEDS: Digoxin 0.125 MG TAB PO (08:22)
[2024-10-16] MEDS: Finasteride 5 MG TAB PO (08:23)
[2024-10-16] MEDS: Metoprolol CR 100 MG TABCR 200 MG PO (08:23)
[2024-10-16] MEDS: Furosemide 40 MG TAB PO ×2 (08:23→17:05)
[2024-10-16] MEDS: dilTIAZem CD 120 MG CAPCR PO (08:23)
[2024-10-16] MEDS: metFORMIN 500 MG TAB PO ×2 (08:23→17:05)
[2024-10-16] MEDS: Lisinopril 20 MG TAB PO (08:23)
[2024-10-16] MEDS: Phenazopyridine 200 MG TAB PO ×3 (08:41→20:45)
--- NOTE | 2024-10-16 10:43 | PT.INTREAT ---
PT Notes Visit Reasons: DKA Inpatient Physical Therapy Treatment Note [facility] Date: 10/16/2024 PRECAUTIONS:fall risk, standard SUBJECTIVE:Pt reports he did not sleep well last night OBJECTIVE:Telemetry removed, ? PAIN: denied VITALS: ? 110/70 pulse 80 Therapeutic Activities (16345x[]): Direct one-on-one instruction in dynamic activities to improve functional performance. ? BED MOBILITY/TRANSFERS? Supine-sit: independent? Sit-stand: independent ? Stand-sit:independent? Bed-Chair:SBA without AD? Chair-bed:SBA without AD Provided skilled cues and instruction on performance and technique throughout. Gait Training (91760h[]): Direct one-on-one instruction and skilled instruction in: [X] employing an assistive device [] modified weight-bearing status [] movement sequencing [x] turning and movement with proper form [x] Provided verbal cues for equipment management and technique [] Provided instruction in gait pattern [x] Patient education regarding pacing and breathing techniques to maximize activity tolerance? GAIT? Assistive Device: FWW? Weight bearing: Full Assist: SBA ? Distance:?100 feet x 2 with sit rest between? Deviation: excessive lateral weight shift B?, reduced knee flexion ? STAIRS: 3 4 steps? and 2 6 steps with B rails SBA reciprocal pattern then on 2nd trial with one rail step to pattern and CGA ? ASSESSMENT: Patient able to progress with ambulation with FWW with improved stability despite excessive lateral weight shift bilateral due to impaired glutes strength. Patient able to perform stairs with 2 rails with standby assist however only has 1 railing at home currently requiring contact-guard assist for use of 1 rail. PLAN: Continue with plan of care for strengthening and stairs with 1 rail to simulate entrance into [facility] TREATMENT CODE/TIME: [id number], 17021 DISCHARGE RECOMMENDATION: Home with HHPT to progress with strengthening and stairs
--- NOTE | 2024-10-16 14:34 | PGE_ITS ---
Date of Service Date of service: 10/16/24 Time of Service: 14:34 Assessment and Plan Assessment and plan (1) DKA (diabetic ketoacidosis): Status: Acute Assessment and plan: - Patient presented not feeling well, generalized weakness and some confusion after having not checked his blood sugar for a week while on vacation - Blood sugar found to be 909 in the emergency department, with supporting evidence for DKA being acidosis on VBG with a pH of 7.2, ketones in the urine, and an anion gap of 17 Have the patient was started on insulin drip in the emergency department - Based on patients insulin drip requirements was started on 15U lantus AM and moderate SSI, Lantus increased to 18 units on the morning of 10/14/2024 due to persistently elevated blood glucose -Blood sugars in the mid to low 300s on 10/16/2024, increased a.m. Lantus to 22 units starting 10/17/2024 and increased sliding scale - Patient will be ready for discharge on 10/17/2024 if his blood sugars improved with after mentioned increase in insulin - continue to monitor blood sugars and adjust insulin as needed (2) Encephalopathy: Status: Acute Assessment and plan: - Patient was confused on admission there was some concern for CVA - However, patient's last known well was greater than 24 hours prior to arrival to the emergency department therefore would be outside the window for intervention - CT of the head negative - It may also be acute metabolic encephalopathy in the setting of DKA - DKA improved, patient's mental status also improving - Patient usually takes his primidone in the evening and has been known to worsen confusion, this has been changed from a.m. to p.m. (3) Combined systolic and diastolic heart failure: Status: Acute Assessment and plan: - Without acute exacerbation -Continue home statin, 40 mg Lasix, 20 mg lisinopril (4) COPD (chronic obstructive pulmonary disease): Status: Chronic Assessment and plan: - Without acute exacerbation, continue home inhaler regimen (5) Renal insufficiency: Assessment and plan: - Unsure what baseline is, creatinine currently 2.2 - Follow-up a.m. CMP (6) HTN (hypertension): Assessment and plan: - Continue home antihypertensives (7) Barretts esophagus: Status: Acute Assessment and plan: - Continue home PPI (8) Hypothyroidism: Assessment and plan: - Continue home Synthroid (9) Atrial fibrillation: Assessment and plan: - Continue home Xarelto, digoxin, diltiazem (10) Essential tremor: Status: Acute Assessment and plan: - Reportedly diagnosed with essential tremor taking primidone and gabapentin - However, patient also has Parkinson-like features and there has been concern for Parkinson's - Patient has also had some autonomic instability here with labile blood pressures - Will recommend outpatient neurology appointment at discharge Subjective Subjective Interval history since last seen: Patient states that he was a little confused upon waking up and that he did not sleep well last night. Otherwise he understands he staying for an additional night to get better control of his blood sugars. Exam Narrative Exam Narrative: Fatigued, morbidly obese gentleman laying in bed in no acute distress, awake, alert, ANO x 4,, heart regular rate rhythm, lungs bilaterally, abdomen soft, nontender, nondistended with significant rash noted over perennial area and lower abdomen Objective Last Vital Signs Temp 98.1 F 10/16/24 14:18 Pulse 68 10/16/24 14:18 Resp 17 10/16/24 14:18 BP 100/60 10/16/24 14:18 Pulse Ox 97 10/16/24 14:18 Laboratory Results - last 24 hr 10/16/24 10/16/24 00:50 05:40 Sodium 137 Potassium 3.3 L Chloride 99 Carbon Dioxide 27.7 Anion Gap 10.3 BUN 21 H Creatinine 1.1 Est GFR (CKD-EPI 2020) 69.57 Glucose 240 H Calcium 8.7 Urine Color Yellow Urine Clarity Cloudy Urine pH 5.5 Ur Specific Ransom <= 1.005 Urine Protein 30 H Urine Ketones 15 H Urine Blood Moderate H Urine Nitrite Negative Urine Bilirubin Negative Urine Urobilinogen 0.2 Ur Leukocyte Esterase Small H Urine RBC Not Applicable Urine WBC >50 H Ur Epithelial Cells Not Applicable Urine Crystals Not Applicable Urine Bacteria Packed Urine Mucus Not Applicable Ur Culture Indicated? Yes Urine Glucose >=1000 H Time Spent with Patient Time Spent with Patient: >50 minutes Time was spent: preparing to see the patient(eg.review tests), obtaining and/or reviewing separately otained hiistory, ordering medications,tests, procedures, referring, communicating with other health care management specialist, indepentently interpreting results, counseling the patient and care coordination
--- NOTE | 2024-10-16 14:44 | PDOC.CMPRO ---
Date of service: 10/16/24 Time of Service: 14:45 Care Management Progress Note Progress Note Text Progress Note Text: Derrek continues to be monitored and treated in the ICU. He was originally planning to return to the [facility] where he planned to stay until November. However, pt has decided to return to his home in [place], [place] in the next 1-2 days. PT recommends New home health PT services. In addition, correction services may be beneficial for disease/medication management and education etc. Referral for HH services will go to [facility]. His will provide transportation. CM will follow. Discharge Potential Discharge Needs: PCP F/U Appt Anticipated Barriers to Discharge: None Identified Patient/Family Education Needs: Review discharge instructions, discuss Ask Me Three Transportation: Private vehicle Plan: Anticipate Derrek will return home once medically cleared, likely tomorrow. New HH RN/PT services are recommended and a referral will be sent to [facility]. His will drive him home via private vehicle. He will follow up with his PCP, neurology and discharge plan of care. CM will continue to follow. Social Determinants of Health Screening Social Determinants of health last assessed in clinic: 10/12/24 Will the Patient Participate in the Screening?: Unable to obtain Do you worry about having a steady place to live?: no Problems where you live: no known problems In the past 12 months, have you had to go without electric, gas, oil or water in your home?: no Has lack of transportation kept you from medical appointments or from doing things needed for daily living?: no Has anyone in your life made you feel unsafe or unsupported?: no How hard is it for you to pay for the very basics like food, housing, medical care, and heating? Would you say it is:: Not hard at all Do you want help finding or keeping work or a job?: I do not need or want help If for any reason you need help with day-to-day activities such as bathing, preparing meals, shopping, managing finances, etc., do you get the help you need?: I don?t need any help How often do you feel lonely or isolated from those around you?: Never Do you speak a language other than Surinamese at home?: No Does the patient want assistance with any of the above?: No
[2024-10-16] MEDS: Rivaroxaban 10 MG TABLET 20 MG PO (17:05)
[2024-10-16 17:55] LABS: BE (Venous) 4 mmol/L (-2-3); HCO3 (Venous) 28 mmol/L (23-28); O2 Sat (Venous) 70 %; TCO2 (Venous) 25 mmol/L (24-29); pCO2 (Venous) 39 mmHg (41-51); pO2 (Venous) 35 mmHg
[2024-10-16] MEDS: Primidone 250 MG TAB PO (20:44)
[2024-10-16] MEDS: Atorvastatin 20 MG TAB PO (20:44)
[2024-10-16] MEDS: Clotrimazole/Betamet Diprop Cream 15 GM TUBE TP (21:35)
[2024-10-17] MEDS: cefTRIAXone 1 GM/50 ML BAG IVPB (04:25)
[2024-10-17] MEDS: Normal Saline Flush 10 ML SYR IVP ×2 (04:25→08:40)
[2024-10-17 06:01] VITALS: BP 92/60
[2024-10-17] MEDS: Levothyroxine 112 MCG TAB PO (06:28)
[2024-10-17 07:13] VITALS: BP 108/70; PULSE 64; RESP 17; TEMP 37; O2SAT 96
[2024-10-17 07:25] LABS: Anion Gap 9.3 mmol/L (3-11); BUN 25 mg/dL (7-18); CO2 25.7 mmol/L (21.0-32.0); Calcium 8.6 mg/dL (8.5-10.1); Chloride 95 mmol/L (98-107); Estimated GFR 52.09 (mL/min/1.73m2); Glucose 256 mg/dL (74-106); Potassium 3.7 mmol/L (3.5-5.1); Sodium 130 mmol/L (136-145)
[2024-10-17] MEDS: Tiotropium Bromide-Respimat 10 PUFF INH 2 PUFF IH (08:02)
[2024-10-17] MEDS: Insulin Aspart 300 UNITS/3 ML PEN SC ×3 (08:37→16:12)
[2024-10-17] MEDS: Insulin Glargine 300 UNITS/3 ML PEN 22 UNITS SC (08:38)
[2024-10-17] MEDS: Phenazopyridine 200 MG TAB PO ×2 (08:39→13:51)
[2024-10-17] MEDS: metFORMIN 500 MG TAB PO (08:39)
[2024-10-17] MEDS: Gabapentin 300 MG CAP 600 MG PO (08:39)
[2024-10-17] MEDS: Digoxin 0.125 MG TAB PO (08:39)
[2024-10-17] MEDS: Finasteride 5 MG TAB PO (08:40)
[2024-10-17] MEDS: dilTIAZem CD 120 MG CAPCR PO (08:40)
[2024-10-17] MEDS: DULoxetine 20 MG CAP PO (08:40)
[2024-10-17] MEDS: Nystatin POWDER 60 GM JAR TP ×2 (09:09→13:51)
[2024-10-17 11:32] VITALS: BP 110/62; PULSE 64; RESP 17; TEMP 37; O2SAT 96
--- NOTE | 2024-10-17 11:50 | PTTR_ITS ---
PT Notes Visit Reasons: DKA Date: 10/17/2024 PRECAUTIONS:fall risk, standard SUBJECTIVE:Pt in recliner, agreed to participating with therapy session. OBJECTIVE: ? PAIN: denied VITALS: Monitored by nursing? Therapeutic Activities 15981: Direct one-on-one instruction in dynamic activities to improve functional performance. ? BED MOBILITY/TRANSFERS? Supine-sit: independent? Sit-stand: independent ? Stand-sit:independent? Bed-Chair:Independent? Chair-bed:Independent Provided skilled cues and instruction on performance and technique throughout. Gait Training 74931: Direct one-on-one instruction and skilled instruction in: employing an assistive device modified weight-bearing status movement sequencing turning and movement with proper form Provided verbal cues for equipment management and technique Provided instruction in gait pattern Patient education regarding pacing and breathing techniques to maximize activity tolerance? GAIT? Assistive Device: FWW? Weight bearing: Full Assist: SBA ? Distance:?100 feet x 4 with sit rest between? Deviation: excessive lateral weight shift B?, reduced knee flexion ? STAIRS: 3 4 steps? and 2 6 steps with 1 rail SBA reciprocal pattern x2 seated rest break in between sets ? ASSESSMENT: pt requested to use the toilet infront of the rehab before going for stair training, pt able to managem toilet ing and perineal care independently, pt returned to recliner after getting done with PT session. PLAN: Continue with plan of care for strengthening and stairs with 1 rail to simulate entrance into [facility] TREATMENT CODE/TIME: [id number], [id number] 35mins (10:13-10:48am) DISCHARGE RECOMMENDATION: Home with HHPT to progress with strengthening and stairs
--- NOTE | 2024-10-17 15:05 | W.PM.DS.N ---
Date of service: 10/17/24 Time of Service: 08:00 DS: Diagnosis Discharge Diagnosis (1) DKA (diabetic ketoacidosis): Status: Acute Asessment and Plan: - Patient presented not feeling well, generalized weakness and some confusion after having not checked his blood sugar for a week while on vacation - Blood sugar found to be 909 in the emergency department, with supporting evidence for DKA being acidosis on VBG with a pH of 7.2, ketones in the urine, and an anion gap of 17 Have the patient was started on insulin drip in the emergency department - Based on patients insulin drip requirements was started on 15U lantus AM and moderate SSI, Lantus increased to 18 units on the morning of 10/14/2024 due to persistently elevated blood glucose -Blood sugars in the mid to low 300s on 10/16/2024, increased a.m. Lantus to 22 units starting 10/17/2024 and increased sliding scale - Patient will be ready for discharge on 10/17/2024 if his blood sugars improved with after mentioned increase in insulin - continue to monitor blood sugars and adjust insulin as needed (2) Encephalopathy: Status: Resolved Asessment and Plan: - Patient was confused on admission there was some concern for CVA - However, patient's last known well was greater than 24 hours prior to arrival to the emergency department therefore would be outside the window for intervention - CT of the head negative - It may also be acute metabolic encephalopathy in the setting of DKA - DKA improved, patient's mental status also improving - Patient usually takes his primidone in the evening and has been known to worsen confusion, this has been changed from a.m. to p.m. (3) Combined systolic and diastolic heart failure: Status: Acute Asessment and Plan: - Without acute exacerbation -Continue home statin, 40 mg Lasix, 20 mg lisinopril (4) COPD (chronic obstructive pulmonary disease): Status: Chronic Asessment and Plan: - Without acute exacerbation, continue home inhaler regimen (5) Renal insufficiency: Asessment and Plan: - Unsure what baseline is, creatinine currently 2.2 - Follow-up a.m. CMP (6) HTN (hypertension): Asessment and Plan: - Continue home antihypertensives (7) Barretts esophagus: Asessment and Plan: - Continue home PPI (8) Hypothyroidism: Asessment and Plan: - Continue home Synthroid (9) Atrial fibrillation: Asessment and Plan: - Continue home Xarelto, digoxin, diltiazem (10) Essential tremor: Status: Acute Asessment and Plan: - Reportedly diagnosed with essential tremor taking primidone and gabapentin - However, patient also has Parkinson-like features and there has been concern for Parkinson's - Patient has also had some autonomic instability here with labile blood pressures - Will recommend outpatient neurology appointment at discharge Discharge Plan Disposition Patient Disposition: Home W/Home Health Services Condition: Improving Discharge Details Reason For Visit: DKA Admit Date/Time: 10/12/24 14:28 Admit Provider: Jose Miguel Bowles Attending Provider: Jose Miguel Bowles Primary Care Provider: Shea Bains [facility] Hospital Course Hospital Course: Derrek Hernandez (Silas) is a 74 year old man presenting October 12 with malaise and confusion, found to have blood glucose 909. He has known type 2 diabetes but has never used insulin in the past; home regimen is empagliflozin and metformin. He was found to be in DKA with anion gap 16.8, venous blood gas showing pH 7.27 and lactate 2.4. He was admitted to the hospital and started on an insulin drip which was stopped October 13. His mental status returned to baseline on October 16. His blood sugars continued to be elevated and his total daily dose of insulin is 37 on day of discharge. He is being prescribed a single dose of daily long-acting insulin, 25 units, pending PCP appointment on TuesdayOctober 23. Recommending endocrinology follow up as well, since etiology of this extreme and resistant rise in blood glucose is unclear. Patient also had low blood pressures and his lisinopril and metoprolol have been held. We continued his digoxin, diltiazem, rivaroxaban, and his other home medications including metformin and empagliflozin. PMH: atrial fibrillation on rivaroxaban+digoxin+diltiazem+metoprolol+lisinopril, DM on orals (dose recently reduced), COPD, HFmrEF 45%, HTN, WAQAR, hypothyroid, Luciano's esophagus, BPH, lumbar spine stenosis, obese BMI 43 - Family reports that his A1C was 8.0 at the end of August, his metformin dose was halved from 1000 BID to 500 BID due to diarrhea, and he was started on empagliflozin. He has been on insulin after gallbladder surgery, but has never been on insulin at home regularly.- - Family reports that they have been camping, with abundant junk food, which Mr. Hernandez has been enjoying to excess. Home Meds and New Rx's Prescriptions: New insulin glargine [Lantus Solostar U-100 Insulin] 100 unit/mL (3 mL) insulin pen 25 unit subcut QPM Qty: 15 0RF phenazopyridine 200 mg tablet 200 mg PO TID Qty: 6 0RF (DME) pen needle, diabetic 29 gauge needle See Rx Instructions .Route Qty: 100 0RF Rx Instructions: As directed nitrofurantoin macrocrystal 100 mg capsule 100 mg PO BID Qty: 14 0RF Rx Instructions: must administer with a meal/food Continued Jardiance 25 mg tablet 25 mg PO DAILY pyridoxine (vitamin B6) 100 mg tablet 100 mg PO DAILY metformin 500 mg tablet 500 mg PO BID furosemide [Lasix] 40 mg tablet 40 mg PO BID loratadine [Allergy Relief (loratadine)] 10 mg tablet 10 mg PO DAILY PRN atorvastatin [Lipitor] 20 mg tablet 20 mg PO DAILY polyethylene glycol 3350 [Miralax] 17 gram powder in packet 17 g PO DAILY (DME) miscellaneous medical supply [facility] See Rx Instructions .ROUTE Rx Instructions: As directed (DME) back brace [facility] [place] Rx Instructions .ROUTE Rx Instructions: As directed duloxetine 20 mg capsule,delayed release(DR/EC) 20 mg PO DAILY (DME) Poise Pads Pad See Rx Instructions .ROUTE Rx Instructions: As directed lutein 20 mg tablet 20 mg PO DAILY Rx Instructions: give with meal/snack Combivent Respimat 20-100 mcg/actuation mist 1 puff inhalation 4XD terazosin 5 MG capsule 5 mg PO DAILY triamcinolone acetonide 5 GM paste 5 g Dental BID pantoprazole [Protonix] 40 MG tablet,delayed release (DR/EC) 40 mg PO DAILY PRN potassium chloride [Klor-Con 10] 10 MEQ tablet extended release 10 meq PO DAILY levothyroxine 112 MCG tablet 112 mcg PO DAILY Oxygen EACH 2 l NS PRN PRNQty: 3 Rx Instructions: Via nasal cannula 24 hrs daily. diclofenac sodium 100 GM gel 4 gm Topical QID PRN30 Days Qty: 100 Rx Instructions: apply 4 grams to right knee or right shoulder finasteride 5 mg tablet 5 mg PO DAILY clotrimazole-betamethasone 1-0.05 % cream 1 applic topical BID digoxin 125 mcg (0.125 mg) tablet 125 mcg PO DAILY diltiazem HCl 120 mg capsule,extended release 12 hr 120 mg PO DAILY Spiriva Respimat 2.5 mcg/actuation mist 2 puff inhalation DAILY Xarelto 20 mg tablet 20 mg PO DAILY Rx Instructions: must administer with evening meal gabapentin 300 mg Capsule 600 mg PO BID primidone 250 mg tablet 250 mg PO QPM Discontinued lutein 6 mg capsule 6 mg PO DAILY Rx Instructions: give with meal/snack vit D3-vit K2-olive leaf ext 25 mcg-20 mcg- 250 mg capsule PO DAILY vitamin A-vit C-vit E-zinc-Cu Tablet PO metoprolol succinate [Toprol XL] 200 mg tablet extended release 24 hr 200 mg PO DAILY lorazepam 0.5 mg tablet 0.5 mg PO DAILY PRN metoprolol tartrate 25 MG tablet 25 mg PO DAILY Rx Instructions: one half tablet in AM, one whole tablet in the evening. Combivent Respimat 4 GM mist 1 puff Inhalation QID Rx Instructions: 20-100 MCG/ACT lisinopril 2.5 mg tablet 20 mg PO DAILY mirabegron 25 mg tablet extended release 24 hr 50 mg PO DAILY primidone [Mysoline] 50 mg tablet 50 mg PO QHS No Action mecobalamin (vitamin B12) 1,000 mcg tablet,chewable 1,000 mcg PO DAILY Discharge Instructions Instructions: How to Use an Insulin Pen Referrals: Brinda Greer [ [facility] STAFF PHYSICIAN, Medicine] Activity:: Activity as Tolerated Equipment/Supplies:: Insulin and needles Diet:: low carb Discharge Orders Discharge Orders: Discharge Order (Routine); Ordered 10/17/24 Ordered By: Rojelio Patricia Discharge Data Discharge Date/Time-TO BE ENTERED AT DEPARTURE: 10/17/24 16:30 DS: Summary Time Spent with Patient providing and/or coordinating discharge services: Less than 30 minutes Status at Discharge Functional status at discharge: independent ambulation Overall status at discharge: patient is back to baseline Mental Status: mental status grossly normal Speech and Movement: speech and movement normal Mood: congruent mood Affect: normal affect Exam Psych Mental Status: mental status grossly normal Speech and Movement: speech and movement normal Mood: congruent mood Affect: normal affect DS: Data Vitals/I&O Vitals and I&O: Vital Signs Temperature 37.0 C 10/17/24 11:32 Temperature Source Temporal Artery Scan 10/17/24 11:32 Pulse 64 10/17/24 11:32 Pulse 106 H 10/15/24 18:02 Respiratory Rate 17 10/17/24 11:32 Blood Pressure 110/62 10/17/24 11:32 Blood Pressure Mean 78 10/17/24 11:32 Pulse Oximetry 96 10/17/24 11:32 Oxygen Delivery Method Room Air 10/17/24 11:32 Oxygen Flow Rate 0 10/17/24 11:32 Pain Level 6 10/15/24 02:02 Intake & Output 10/16/24 10/17/24 10/17/24 23:59 11:59 23:59 Intake Total 442 / 652 1300 / 1520 220 / 1520 Output Total 250 / 500 350 / 450 100 / 450 Balance 192 / 152 950 / 1070 120 / 1070 Weight 113.7 kg Intake: IV 60 / 60 Oral 442 / 592 1240 / 1460 220 / 1460 Output: Urine 250 / 500 350 / 450 100 / 450 Other: Urine Color Gretna Gretna Gretna Urine Appearance Clear Cloudy Urine Odor Normal None Comment Pt incontinent of urine on the chair and floor Pt used M/S unit bathroom. Pt reports voiding. Stool Size Moderate Large Stool Characteristics Soft Soft Liquid Formed Brown Brown Data Completed and Pending Labs on day of discharge: Labs from last 24 hours 10/17/24 10/17/24 10/16/24 14:02 05:50 17:43 VBG pH 7.46 H VBG pCO2 39 L VBG pO2 35 VBG HCO3 28 VBG Total CO2 25 VBG O2 Saturation 70 VBG Base Excess 4 H Sodium 130 L Potassium 3.7 Chloride 95 L Carbon Dioxide 25.7 Anion Gap 9.3 BUN 25 H Creatinine 1.4 H Est GFR (CKD-EPI 2020) 52.09 Glucose 256 H Hemoglobin A1c Pending Calcium 8.6 Urine Color Urine Clarity Urine pH Ur Specific [place] Urine Protein Urine Ketones Urine Blood Urine Nitrite Urine Bilirubin Urine Urobilinogen Ur Leukocyte Esterase Urine WBC Urine Bacteria Ur Culture Indicated? Urine Glucose 10/16/24 00:50 VBG pH VBG pCO2 VBG pO2 VBG HCO3 VBG Total CO2 VBG O2 Saturation VBG Base Excess Sodium Potassium Chloride Carbon Dioxide Anion Gap BUN Creatinine Est GFR (CKD-EPI 2020) Glucose Hemoglobin A1c Calcium Urine Color Yellow Urine Clarity Cloudy Urine pH 5.5 Ur Specific [place] <= 1.005 Urine Protein 30 H Urine Ketones 15 H Urine Blood Moderate H Urine Nitrite Negative Urine Bilirubin Negative Urine Urobilinogen 0.2 Ur Leukocyte Esterase Small H Urine WBC >50 H Urine Bacteria Packed Ur Culture Indicated? Yes Urine Glucose >=1000 H Preliminary micro results at discharge 10/16/24 00:50 Urine - Reflex from Ua Urine Culture - Preliminary Escherichia coli PFSH All Active Problems (Updated 10/18/24 @ 00:04 by [employer]) Escherichia coli urinary tract infection (Acute) Essential tremor (Acute) DKA (diabetic ketoacidosis) (Acute) Personal history of nicotine dependence (Acute) WAQAR (obstructive sleep apnea) (Chronic) Sacroiliac joint dysfunction of right side (Acute) Type 2 diabetes mellitus with hyperglycemia (Acute) Combined systolic and diastolic heart failure (Acute) EF 30% on echo 04/2021, significant change from EF 55% IN 2019 + MR on echo 04/2021 Tremor of left hand (Acute) Macular degeneration of both eyes (Acute) COPD (chronic obstructive pulmonary disease) (Chronic) Restrictive lung disease (Acute) 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) Medical History (Updated 10/18/24 @ 00:04 by [employer]) Barretts esophagus Back pain, lumbosacral Bilateral age-related macular degeneration Brittle nails Right shoulder pain Left shoulder pain Foot pain Osteoarthritis Constipation Spinal stenosis, lumbar region with neurogenic claudication Mitral regurgitation Tobacco use long-term current use of anticoagulant therapy Right knee pain Renal insufficiency Hyperkalemia Nuclear age-related cataract, both eyes Localized swelling of right lower leg Overactive bladder Type 2 diabetes mellitus with diabetic chronic kidney disease Obesity, morbid, BMI 40.0-49.9 PHT (portal hypertension) AAA (abdominal aortic aneurysm) COPD, severe Pyarthrosis PSA (psoriatic arthritis) ASCVD (arteriosclerotic cardiovascular disease) Health care maintenance Skin complaints Alopecia Arthritis of both knees Hypercholesteremia Arthritis of right shoulder region Breast lump or mass HTN (hypertension) Pleural effusion, bilateral GERD (gastroesophageal reflux disease) Peripheral edema Hypoxia Melanocytic nevus of trunk Hypothyroidism Left Hyperlipidemia Hyperglycemia Essential and other specified forms of tremor Atrial fibrillation Anemia CAD (coronary artery disease) Heart failure Morbid obesity SOB (shortness of breath) Fatigue Sleep apnea Low back pain Primary osteoarthritis of right shoulder BPH (benign prostatic hyperplasia) Surgical History (Updated 09/04/24 @ 13:54 by Yaneth Alanis) S/P colonoscopy History of esophagogastroduodenoscopy (EGD) 04/2021, biopsies pending Arthroplasty of knee 03/2016 Left Family History Mother Emphysema of lung Father CHF (congestive heart failure) Sister Waldenstrom's disease Arthritis Brother Hypertension Social History Smoking/Tobacco Use Status: Former Tobacco Use Quit Date: 02/07/94 Smoking risk assessment performed?: Yes Alcohol Intake: never Drug use: Never Substance use type: does not use Household members: spouse Housing: house 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
--- NOTE | 2024-10-17 15:06 | PDOC.HHF2F_ITS ---
Home Health Referral Home Health Orders Clinical synopsis of why skilled professionals are needed: Multiple comorbidities with new insulin dependence and ambulatory dysfunction Medical diagnosis necessitation home health referral: DKA Registered Nurse: Check all that apply Instruct on new or changed medication(s)/assess compliance: Ordered Assess for exacerbation of medical condition, instruct patient/caregivers on signs and symptoms to report for early detection: Ordered Physical Therapist: Check all that apply Increase strength & endurance for safe mobility at home: Ordered To design/establish home maintenance program: Ordered Home safety evaluation and teaching/gait training including stair management (if applicable): Ordered Encounter Date and Reason: I certify that a FTF encounter for this patient was performed on October 17, 2024 and that such encounter was related to the primary reason the patient requires home health services. The encounter was conducted in the following manner: * By me as the certifying physician, OCCUPATIONAL PHYSICIAN, PA or * By an inpatient physician, OCCUPATIONAL PHYSICIAN or PA during an inpatient stay who communicated findings to me, Certification And Authentication I certify that I composed the above information based on my clinical judgment relating to this patient's medical condition and, if applicable, clinical findings communicated to me by the NPP or inpatient physician who performed the FTF encounter. Name of Provider that will be monitoring home health services: Brinda Greer
[2024-10-17 15:13] VITALS: BP 110/64; PULSE 68; TEMP 36.8; O2SAT 95
--- NOTE | 2024-10-17 15:46 | CMDISCH_ITS ---
Date of service: 10/17/24 Time of Service: 15:46 LACE Index Scoring Tool Questions: Length of Stay (in days): 4 - 6 Was the patient admitted via the E.D.?: Yes Comorbidities: Diabetes w/o Complication, Congestive Heart Failure and Chronic Pulmonary Disease E.D. Visits: 1 Answers: Total Score: 13 Risk of Readmission: High Risk Care Management Discharge Plan Reason for Hospitalization: diabetic keto acidosis Discharge Plan: Derrek was discharged home this afternoon with new HH service of PT and RN through [facility]. Referral was faxed by CM and successful transmission received. Derrek will be returning to his home in [place], [place] tomorrow, so referral sent to the [facility] that covers that area (confirmed via phone call). Derrek will f/u with his PCP and with his community providers, and continue per his plan of care. Derrek was transported home by family. Patient/Family Education Needs: Review of discharge instructions, activity, limitations and discuss Ask me 3. Services Needed at Discharge: Home Health Care Services ([facility] PT and RN)
[2024-10-17] MEDS: Refresh PLUS Eye Drops 0.4ml 1 EACH OU (16:20)
--- NOTE | 2024-10-18 08:52 | W.DIABETESNO ---
Date of service: 10/17/24 Time of Service: 16:00 Diabetes Note Reason for Visit: medical nutrition therapy for diabetes and glargine administration teaching NOTE: Met with Mr. Hernandez and his and [id number]. We reviewed carbohydrate counting and the plate method for moderating carbohydrates. Provided written materials. Reviewed administration of glargine with a demonstration pen. Suggested to his who will be providing most of the care for Mr. Hernandez, that for now they simply check his morning blood sugar. If she does not notice an improvement with them going down and getting at least under 200, she should call Walter Hansen who is also a [facility]. Provided his contact information. Walter will be able to guide them until they see their primary care doctor. Walter may recommend that they increase the glargine based on his morning blood sugars. Mrs. Hernandez verbalized an excellent understanding of the plan of care. I expect she will follow through as we had discussed. Thank you for this consult. Time Spent in Nutritional Counseling and Treatment: 45 minutes
== END 2024-10-17 16:30 | disposition home health service (06) | DRG 637 ==
LOC: ER 16:15 → ICU 16:16
PROVIDERS: Family Medicine; Admitting Provider Family Medicine; Emergency Provider Nurse Practitioner Family; PCP Family Medicine; Responsible Provider Family Medicine; Visit Provider Family Medicine
DX: E11.10 Type 2 diabetes mellitus with ketoacidosis without coma (principal); I50.40 Unspecified combined systolic (congestive) and diastolic (congestive) heart failure; J44.9 Chronic obstructive pulmonary disease, unspecified; K22.70 Barrett's esophagus without dysplasia; E03.9 Hypothyroidism, unspecified; I48.91 Unspecified atrial fibrillation; G25.0 Essential tremor; N39.0 Urinary tract infection, site not specified; B96.20 Unspecified Escherichia coli [E. coli] as the cause of diseases classified elsewhere; G93.41 Metabolic encephalopathy; Z68.41 Body mass index [BMI] 40.0-44.9, adult; K76.6 Portal hypertension; Z79.84 Long term (current) use of oral hypoglycemic drugs; Z79.01 Long term (current) use of anticoagulants; I11.0 Hypertensive heart disease with heart failure; G47.33 Obstructive sleep apnea (adult) (pediatric); N40.0 Benign prostatic hyperplasia without lower urinary tract symptoms; I44.7 Left bundle-branch block, unspecified; Z87.891 Personal history of nicotine dependence; M53.3 Sacrococcygeal disorders, not elsewhere classified; H35.30 Unspecified macular degeneration; M48.062 Spinal stenosis, lumbar region with neurogenic claudication; I34.0 Nonrheumatic mitral (valve) insufficiency; E66.01 Morbid (severe) obesity due to excess calories; I25.10 Atherosclerotic heart disease of native coronary artery without angina pectoris; D64.9 Anemia, unspecified; E78.00 Pure hypercholesterolemia, unspecified; I71.40 Abdominal aortic aneurysm, without rupture, unspecified; N32.81 Overactive bladder; N28.9 Disorder of kidney and ureter, unspecified
CPT/HCPCS: 00123; 36415; 36416; 80048; 80053; 82805; 85027; 87077; 93005; 94640; 96361; 96365; 96366; 97116; 97162; 97530; 99285; 70450; 71045; 81003; 81015; 83036; 83605; 83735; 84100; 84443; 85025; 87086; 87186; 93010; 94664; 94760; 99223; 99233; 99238; J0696; J1815; J3490

== ENCOUNTER 2024-12-05 13:42 | Outpatient (CLI) | payer MEDICARE, OTHER, SELFPAY ==
[2024-12-05 14:08] VITALS: BP 100/46; PULSE 85; RESP 18; TEMP 37.1; O2SAT 94
[2024-12-05 14:51] LABS: Hemoglobin A1C 8.6 % (<5.7)
--- NOTE | 2024-12-05 15:30 | PDOC.PAIN ---
Date of service: 12/05/24 Time of Service: 15:49 Pain Managment Procedure Note Procedure Note Procedure Note: Sacroiliac Joint Steroid Injection Location: Right SI Joint Pre-procedure Diagnosis: Sacroiliitis, not elsewhere classified - M46.1 Post-procedure Diagnosis: The same as above Sedation: NONE Medication: Depo-Medrol 40 mg, bupivacaine 0.5% 1 mL, Omnipaque 0.25 mL per joint Estimated blood loss: less than 2 cc Surgeon: Kennedy Horner MD COMMENT: PT HAD GREATER THAN 50% RELIEF OF HER PAIN FOR GREATER THAN 6 MONTHS FROM PREVIOUS INJECTION Procedure Detail: The procedure and potential risks were explained to the patient and informed written consent was obtained. The patient was escorted to the procedure room and placed in the prone position. Pillows were utilized for proper positioning and comfort. Time out was performed in the procedure room with nursing staff confirming the patient's identity, procedure to be performed, allergies, and any blood thinning or anti-platelet medications. The patient's lumbosacral area was prepped with ChloraPrep and draped in a sterile fashion. Sterile technique was maintained throughout the procedure. Sterile gloves were used, a face mask was worn, and new single dose vials of all medications were used with the top being swabbed with alcohol and given time to dry prior to withdrawal of medication. Lidocaine 1% was used to anesthetize the skin. With fluoroscopic guidance, a 22-gauge 3.5 spinal needle was advanced into the posteroinferior aspect of the Right SI joint . Confirmation of intra-articular position of the needle tip was obtained with injection of 0.25cc of Omnipaque 240 contrast which showed appropriate spread within the joint. Following negative aspiration, 40mg of methylprednisolone mixed with 1 mL of bupivacaine 0.5% was injected. The needle was gently removed. The patient tolerated the procedure well and was discharged home with instructions. Permanent images saved and recorded. Plan: Follow up prn. PAIN PRE PROCEDURE 08/16 POST PROCEDURE 02/16 COMMENT: 80 % BETTER AFTER INJECTION Coding Conscious Sedation used for procedure: No CPT Codes: SI Joint Inj; incl Fluoro - 48565 ([id number] ~G) Additional Codes: Date of Service (42191) Diagnoses: Sacroiliitis, not elsewhere classified - M46.1
[2024-12-05 15:37] VITALS: PULSE 82; O2SAT 93
[2024-12-05 15:40] VITALS: PULSE 69
--- NOTE | 2024-12-05 15:43 | DI.RAD_ITS ---
Exam(s) XR PAIN CLINIC SACRIOILIAC 2V EXAM: XR PAIN CLINIC SACRIOILIAC 2V CLINICAL HISTORY: Dx: Sacroiliac Joint Dysfunction TECHNIQUE: 2D and realtime digital imaging was performed. CONTRAST MATERIAL: Refer to procedure report. COMPARISON: No exams were available for comparison FINDINGS: Fluoroscopy was provided for Dr. Horner during the performance of a right sacroiliac joint injection. Please refer to the procedure report for complete details. Ka,r=7.61 mGy IMPRESSION: RADIATION DOSE DELIVERED: 0.0 0.0 0
[2024-12-05] MEDS: methylPREDNISolone ACETATE 80 MG/ML VIAL IJ (15:50)
[2024-12-05] MEDS: Nerve Block Tray 1 EACH MC (15:50)
[2024-12-05] MEDS: Bupivacaine 0.5% Pres-Free 10 ML VIAL IJ (15:51)
[2024-12-05] MEDS: Omnipaque 240 MG/ML 50 ML BTL IJ (15:51)
== END 2024-12-05 13:43 | disposition home or self-care (01) ==
LOC: PC 13:42
PROVIDERS: PCP Registered Nurse; Visit Provider Anesthesiology Pain Medicine
DX: M46.1 Sacroiliitis, not elsewhere classified (principal)
CPT/HCPCS: 27096; 72200; 83036; J0665; J1010; Q9967